=== PATIENT | male | born 1930 | race Caucasian/White ===

== ENCOUNTER → 2016-08-05 | Outpatient (REF) | payer MEDICARE, OTHER ==
[~2016-08-05] MED LIST: ASPI1TAB PO; ATOR1TAB19 PO; CALC1TAB30 PO; COLA100C PO; LEVO100T5 PO; TYLE325T5 PO; VANC250C2 PO
[2016-08-05 09:29] LABS: MEAN CORPUSCULAR HEMOGLOBIN 29.3 pg (27.0-33.0); MEAN CORPUSCULAR HGB CONC 32.9 g/dl (32.0-36.5); MEAN CORPUSCULAR VOLUME 89.3 fl (80.0-96.0); RED CELL DISTRIBUTION WIDTH 13.9 % (11.5-14.5); WHITE BLOOD COUNT 7.6 K/mm3 (4.0-10.0)
[2016-08-05 10:18] LABS: ALBUMIN 3.4 GM/DL (3.2-5.2); ALBUMIN/GLOBULIN RATIO 1.21 (1.00-1.93); ALKALINE PHOSPHATASE 67 U/L (45-117); ALT/SGPT 16 U/L (12-78); ANION GAP 7 MEQ/L (8-16); AST/SGOT 13 U/L (15-37); BILIRUBIN,TOTAL 0.6 MG/DL (0.2-1.0); BLOOD UREA NITROGEN 22 MG/DL (7-18); CALCIUM LEVEL 8.6 MG/DL (8.8-10.2); CARBON DIOXIDE LEVEL 30 MEQ/L (21-32); CHLORIDE LEVEL 105 MEQ/L (98-107); CREATININE FOR GFR 0.75 MG/DL (0.70-1.30); FREE T4 1.21 NG/DL (0.76-1.46); GLOMERULAR FILTRATION RATE > 60.0 (>35); GLUCOSE, FASTING 82 MG/DL (83-110); POTASSIUM SERUM 4.5 MEQ/L (3.5-5.1); SODIUM LEVEL 142 MEQ/L (136-145); TOTAL PROTEIN 6.2 GM/DL (6.4-8.2)
== END ==
PROVIDERS: ATTEND Family Medicine
DX: K52.9 Noninfective gastroenteritis and colitis, unspecified (principal); E03.9 Hypothyroidism, unspecified

== ENCOUNTER → 2016-10-28 | Outpatient (CLI) | payer MEDICARE, OTHER ==
[~2016-10-28] MED LIST changes: -COLA100C PO; +COLA100C3 PO
--- NOTE | 2016-10-28 14:58 | REP ---
KUB: SINGLE VIEW. HISTORY: Gastroenteritis and colitis. FINDINGS: There is moderate right and left colonic stool. The rectum is distended and filled with formed stool, 11.3 cm in diameter. This is consistent with obstipation fecal impaction pattern. No small or proximal large bowel dilation is seen. Psoas margins are symmetric. No mass or organomegaly is appreciated. Vascular calcification is noted. There is diffuse osteopenia. IMPRESSION: Obstipation fecal impaction pattern. Signed by Saud Smith MD 10/28/2016 04:35 P
== END ==
LOC: M RAD 11:04
PROVIDERS: ATTEND Family Medicine
DX: K52.9 Noninfective gastroenteritis and colitis, unspecified (principal)

== ENCOUNTER → 2016-12-18 | Outpatient (CLI) | payer MEDICARE, OTHER ==
[~2016-12-18] MED LIST changes: -COLA100C3 PO; +COLA100C5 PO
--- NOTE | 2016-12-18 10:58 | REP ---
Supine abdomen single AP view: Comparison is 10/28/2016. There is a large fecal bolus in the rectal ampulla, compatible with impaction, similar to the prior study. There is no bowel obstruction. Large volume of fecal residue in the ascending colon and moderate volume of fecal residue in the descending colon. There is diffuse demineralization. Impression: Large fecal bolus in the rectal ampulla, compatible with impaction, similar to the comparison study. Signed by Rajiv Madrigal MD 12/18/2016 10:49 A
== END ==
LOC: M RAD 10:14
PROVIDERS: ATTEND Family Medicine
DX: K59.00 Constipation, unspecified (principal)

== ENCOUNTER → 2016-12-28 | Outpatient (CLI) | payer MEDICARE, OTHER ==
--- NOTE | 2016-12-28 10:52 | REP ---
KUB, ONE VIEW: HISTORY: Fecal impaction. COMPARISON: 12/18/2016 A large quantity of stool is present in the colon. There are no air fluid levels or dilated loops of intestine. There is no pneumoperitoneum. IMPRESSION: There is a large quantity of stool in the colon. Signed by Luis Bonilla MD 12/28/2016 11:08 A
== END ==
LOC: M RAD 10:20 → M LAB 10:20
PROVIDERS: ATTEND Family Medicine
DX: K56.41 Fecal impaction (principal)

== ENCOUNTER 2017-02-11 13:51 | Outpatient (CLI) | payer MEDICARE, OTHER ==
[~2017-02-11] VITALS: Ht 190.5 cm; Wt 68.5 kg
[~2017-02-11 13:51] MED LIST changes: +LIDOCAINE 2% INJ 100 MG/5 ML SDV (FOR ANES.) As Ordered ONE; +PROPOFOL 200 MG/20 ML VIAL As Ordered ONE
[2017-02-11] MEDS ORDERED: NS 1,000 ML IV ONE (14:00)
[2017-02-11] MEDS ORDERED: PHENYLephrine HCL 500 MCG/5 ML (100MCG/ML) SYRINGE (J2370) As Ordered ONE (15:09)
--- NOTE | 2017-02-11 15:42 | ROOR ---
Patient Name: Jaxson Sparrow Procedure Date: 02/11/2017 2:58 PM Date of : 1930 Age: 86 Room: [facility] Gender: Male Note Status: Finalized Procedure: Colonoscopy Indications: Change in bowel habits, Constipation, Fecal incontinence, fecal impaction. Providers: Richar GUERRERO MD Referring MD: Prashanth Ashby MD Requesting Provider: Medicines: Monitored Anesthesia Care Complications: No immediate complications. Procedure: Pre-Anesthesia Assessment: - The heart rate, respiratory rate, oxygen saturations, blood pressure, adequacy of pulmonary ventilation, and response to care were monitored throughout the procedure. The Colonoscope was introduced through the anus and advanced to 1 cm into the ileum. The colonoscopy was performed without difficulty. The patient tolerated the procedure well. The quality of the bowel preparation was good. Findings: The perianal and digital rectal examinations were normal. The lumen of the colon (entire examined portion) was significantly dilated. Three sessile polyps were found in the ascending colon and cecum. The polyps were 5 to 10 mm in size. These polyps were removed with a piecemeal technique using a cold snare. Resection and retrieval were complete. Three sessile polyps were found in the sigmoid colon. The polyps were 7 to 10 mm in size. These polyps were removed with a cold snare. Resection and retrieval were complete. Internal hemorrhoids were found during retroflexion. The hemorrhoids were moderate. Impression: - Atonic, compliant colon-Megacolon. - Three 5 to 10 mm polyps in the ascending colon and in the cecum, removed piecemeal using a cold snare. Resected and retrieved. - Three 7 to 10 mm polyps in the sigmoid colon, removed with a cold snare. Resected and retrieved. - Internal hemorrhoids. - No obstruction, no restriction. Recommendation: - Senosides (Senokot) 2 tablets daily indefinitely. - Use Miralax 2 capfuls (34 grams) daily indefinitely. Richar Guerrero MD Richar GUERRERO MD 02/11/2017 3:42:11 PM This report has been signed electronically. Number of Addenda: 0 Note Initiated On: 02/11/2017 2:58 PM Estimated Blood Loss: Estimated blood loss: none.
[2017-02-11 16:00] VITALS: BP 122/67
== END 2017-02-11 16:07 | disposition home or self-care (01) ==
LOC: M OPP 13:51
PROVIDERS: ATTEND Internal Medicine Gastroenterology
DX: D12.2 Benign neoplasm of ascending colon (principal); D12.0 Benign neoplasm of cecum; D12.5 Benign neoplasm of sigmoid colon; K64.8 Other hemorrhoids; K59.39 Other megacolon
CPT/HCPCS: 45385; 88305; J2370

== ENCOUNTER → 2018-02-16 | Outpatient (CLI) | payer MEDICARE, OTHER ==
[2018-02-16 16:38] LABS: OSMOLALITY SERUM 302 MOSM/KG (280-301)
== END ==
LOC: M LAB 15:19
DX: K56.41 Fecal impaction (principal); R19.7 Diarrhea, unspecified
CPT/HCPCS: 74018

== ENCOUNTER → 2018-02-17 | Outpatient (REF) | payer MEDICARE, OTHER | DX: R19.7 Diarrhea, unspecified (principal) | CPT/HCPCS: 87507 ==

== ENCOUNTER → 2018-04-20 | Outpatient (REF) | payer MEDICARE, OTHER | DX: R19.7 Diarrhea, unspecified (principal) | CPT/HCPCS: 87493 ==

== ENCOUNTER 2018-04-21 09:33 | Inpatient (IN) | payer MEDICARE, OTHER ==
[2018-04-21 10:32] LABS: BASO % 0.2 % (0.0-1.0); HEMATOCRIT 44.9 % (42.0-52.0); HEMOGLOBIN 14.8 g/dl (13.5-17.5); IMMATURE GRANULOCYTE % 0.8 % (0-3.0); LYMPH # 1.1 10^3/uL (1.5-4.5); MEAN CORPUSCULAR HEMOGLOBIN 29.1 pg (27.0-33.0); MEAN CORPUSCULAR VOLUME 88.4 fl (80.0-96.0); MONO # 1.4 10^3/uL (0.0-0.8); MONO % 6.4 % (0.0-5.0); NEUTROPHILS # 19.8 10^3/uL (1.8-7.7); NEUTROPHILS % 87.6 % (36.0-66.0); PLATELET COUNT, AUTOMATED 251 10^3/uL (150-450); RED BLOOD COUNT 5.08 10^6/uL (4.30-6.10); RED CELL DISTRIBUTION WIDTH 14.8 % (11.5-14.5); WHITE BLOOD COUNT 22.6 10^3/uL (4.0-10.0)
[2018-04-21] MEDS: NS 500 ML IV ×2 (10:50→12:58)
[2018-04-21 11:11] LABS: ANION GAP 6 MEQ/L (8-16); BLOOD UREA NITROGEN 32 MG/DL (7-18); CALCIUM LEVEL 9.7 MG/DL (8.8-10.2); CARBON DIOXIDE LEVEL 28 MEQ/L (21-32); CHLORIDE LEVEL 107 MEQ/L (98-107); CPK CREATINE PHOSPHOKINASE 38 U/L (39-308); CREATININE FOR GFR 1.29 MG/DL (0.70-1.30); FREE T4 0.91 NG/DL (0.76-1.46); GLUCOSE, FASTING 117 MG/DL (70-100); MAGNESIUM LEVEL 2.3 MG/DL (1.8-2.4); MB/CK RELATIVE INDEX 2.63 (< OR =4); NT-PRO BNP 2046 PG/ML (<450); POTASSIUM SERUM 4.7 MEQ/L (3.5-5.1); SODIUM LEVEL 141 MEQ/L (136-145); TROPONIN I < 0.02 NG/ML (< 0.10)
[2018-04-21] MEDS: NS 1,000 ML IV (14:31)
[2018-04-21] MEDS ORDERED: CALCIUM CARBONATE 500 MG CHEW U/D PO (14:45)
[2018-04-21] MEDS ORDERED: BISACODYL 10 MG SUPP PR (14:45)
[2018-04-21] MEDS ORDERED: MIRALAX *UNIT DOSE* 17GM PACKET PO (14:45)
[2018-04-21] MEDS: ENOXAPARIN 30 MG/0.3 ML SYR (J1650) SC (15:45)
[2018-04-21] MEDS ORDERED: DOCUSATE SODIUM 100 MG CAP PO (21:00)
[2018-04-21] MEDS ORDERED: SENNA 8.6 MG TAB (SENOKOT) PO (21:00)
[2018-04-21] MEDS: LACTOBACILLUS ACIDOPHILUS CAP (BACID) PO (23:34)
[2018-04-21] MEDS: ATORVASTATIN 10 MG TAB PO (23:35)
[2018-04-22] MEDS: NS 1,000 ML IV ×2 (02:30→14:13)
[2018-04-22 04:27] LABS: KETONE, URINE AUTO RFX TRACE mg/dL (NEGATIVE); MUCUS, URINE RFX SMALL (NEGATIVE); NITRITE, URINE AUTO RFX NEGATIVE (NEGATIVE); RBC, URINE AUTO RFX 7 /HPF (0-3); SQUAM EPITHELIAL CELL UR AURFX 0 /HPF (0-6); TRANSITIONAL EPITHELIAL AU RFX <1 /HPF
[2018-04-22 05:17] LABS: LEUKOCYTE ESTERASE UR AUTO RFX 3+ (NEGATIVE); WBC, URINE AUTO RFX TNTC /HPF (0-3)
[2018-04-22] MEDS: LEVOTHYROXINE 100MCG TABLET (0.1MG) PO (05:37)
[2018-04-22 07:21] LABS: BASO # 0.1 10^3/uL (0.0-0.2); BASO % 0.3 % (0.0-1.0); EOS % 0.1 % (0.0-3.0); HEMATOCRIT 40.7 % (42.0-52.0); HEMOGLOBIN 13.1 g/dl (13.5-17.5); IMMATURE GRANULOCYTE % 0.9 % (0-3.0); LYMPH # 1.6 10^3/uL (1.5-4.5); LYMPH % 8.3 % (24.0-44.0); MEAN CORPUSCULAR HEMOGLOBIN 28.8 pg (27.0-33.0); MEAN CORPUSCULAR HGB CONC 32.2 g/dl (32.0-36.5); MEAN CORPUSCULAR VOLUME 89.5 fl (80.0-96.0); MONO # 1.4 10^3/uL (0.0-0.8); MONO % 7.2 % (0.0-5.0); NEUTROPHILS # 15.9 10^3/uL (1.8-7.7); NEUTROPHILS % 83.2 % (36.0-66.0); PLATELET COUNT, AUTOMATED 199 10^3/uL (150-450); RED BLOOD COUNT 4.55 10^6/uL (4.30-6.10); RED CELL DISTRIBUTION WIDTH 14.9 % (11.5-14.5); WHITE BLOOD COUNT 19.1 10^3/uL (4.0-10.0)
[2018-04-22 07:46] LABS: ANION GAP 6 MEQ/L (8-16); BLOOD UREA NITROGEN 28 MG/DL (7-18); CALCIUM LEVEL 8.6 MG/DL (8.8-10.2); CARBON DIOXIDE LEVEL 25 MEQ/L (21-32); CHLORIDE LEVEL 111 MEQ/L (98-107); CREATININE FOR GFR 0.85 MG/DL (0.70-1.30); GLOMERULAR FILTRATION RATE > 60.0 (>35); GLUCOSE, FASTING 88 MG/DL (70-100); MAGNESIUM LEVEL 2.1 MG/DL (1.8-2.4); POTASSIUM SERUM 3.9 MEQ/L (3.5-5.1); SODIUM LEVEL 142 MEQ/L (136-145)
[2018-04-22] MEDS: ENOXAPARIN 30 MG/0.3 ML SYR (J1650) SC (11:26)
[2018-04-22] MEDS: LACTOBACILLUS ACIDOPHILUS CAP (BACID) PO ×2 (11:26→21:18)
[2018-04-22] MEDS: LOPERAMIDE 2 MG CAP PO (14:13)
[2018-04-22] MEDS: ATORVASTATIN 10 MG TAB PO (21:18)
[2018-04-23] MEDS: LEVOTHYROXINE 100MCG TABLET (0.1MG) PO (05:58)
[2018-04-23 06:25] LABS: BASO # 0.1 10^3/uL (0.0-0.2); BASO % 0.4 % (0.0-1.0); EOS # 0.1 10^3/uL (0.0-0.50); EOS % 0.6 % (0.0-3.0); HEMATOCRIT 38.4 % (42.0-52.0); HEMOGLOBIN 12.6 g/dl (13.5-17.5); IMMATURE GRANULOCYTE % 0.5 % (0-3.0); LYMPH # 1.6 10^3/uL (1.5-4.5); LYMPH % 11.4 % (24.0-44.0); MEAN CORPUSCULAR HEMOGLOBIN 28.9 pg (27.0-33.0); MEAN CORPUSCULAR HGB CONC 32.8 g/dl (32.0-36.5); MEAN CORPUSCULAR VOLUME 88.1 fl (80.0-96.0); MONO # 1.2 10^3/uL (0.0-0.8); MONO % 8.2 % (0.0-5.0); NEUTROPHILS % 78.9 % (36.0-66.0); PLATELET COUNT, AUTOMATED 177 10^3/uL (150-450); RED BLOOD COUNT 4.36 10^6/uL (4.30-6.10); RED CELL DISTRIBUTION WIDTH 15.3 % (11.5-14.5)
[2018-04-23 06:48] LABS: ANION GAP 6 MEQ/L (8-16); BLOOD UREA NITROGEN 25 MG/DL (7-18); CARBON DIOXIDE LEVEL 25 MEQ/L (21-32); CHLORIDE LEVEL 112 MEQ/L (98-107); CREATININE FOR GFR 0.81 MG/DL (0.70-1.30); GLOMERULAR FILTRATION RATE > 60.0 (>35); GLUCOSE, FASTING 86 MG/DL (70-100); MAGNESIUM LEVEL 2.2 MG/DL (1.8-2.4); SODIUM LEVEL 143 MEQ/L (136-145)
[2018-04-23 08:13] LABS: C REACTIVE PROTEIN QUANTITATIV 8.91 MG/DL (0.00-0.30)
[2018-04-23] MEDS: ENOXAPARIN 30 MG/0.3 ML SYR (J1650) SC (09:33)
[2018-04-23] MEDS: ACETAMINOPHEN TAB 650MG DOSE (2X325MG) PO (09:33)
[2018-04-23] MEDS: LACTOBACILLUS ACIDOPHILUS CAP (BACID) PO ×2 (09:34→20:21)
[2018-04-23] MEDS: LOPERAMIDE 2 MG CAP PO (14:45)
[2018-04-23] MEDS: ATORVASTATIN 10 MG TAB PO (20:21)
[2018-04-24] MEDS: LEVOTHYROXINE 100MCG TABLET (0.1MG) PO (05:40)
[2018-04-24 06:10] LABS: BASO # 0.1 10^3/uL (0.0-0.2); BASO % 0.5 % (0.0-1.0); EOS # 0.1 10^3/uL (0.0-0.50); EOS % 0.7 % (0.0-3.0); HEMATOCRIT 42.6 % (42.0-52.0); IMMATURE GRANULOCYTE % 0.9 % (0-3.0); LYMPH # 1.6 10^3/uL (1.5-4.5); MEAN CORPUSCULAR HEMOGLOBIN 29.3 pg (27.0-33.0); MEAN CORPUSCULAR HGB CONC 32.9 g/dl (32.0-36.5); MEAN CORPUSCULAR VOLUME 89.1 fl (80.0-96.0); MONO # 0.9 10^3/uL (0.0-0.8); MONO % 6.9 % (0.0-5.0); NEUTROPHILS # 10.2 10^3/uL (1.8-7.7); PLATELET COUNT, AUTOMATED 200 10^3/uL (150-450); RED BLOOD COUNT 4.78 10^6/uL (4.30-6.10); RED CELL DISTRIBUTION WIDTH 14.7 % (11.5-14.5); WHITE BLOOD COUNT 12.9 10^3/uL (4.0-10.0)
[2018-04-24 06:32] LABS: ANION GAP 7 MEQ/L (8-16); BLOOD UREA NITROGEN 20 MG/DL (7-18); C REACTIVE PROTEIN QUANTITATIV 4.96 MG/DL (0.00-0.30); CALCIUM LEVEL 8.4 MG/DL (8.8-10.2); CARBON DIOXIDE LEVEL 25 MEQ/L (21-32); CHLORIDE LEVEL 110 MEQ/L (98-107); CREATININE FOR GFR 0.76 MG/DL (0.70-1.30); GLOMERULAR FILTRATION RATE > 60.0 (>35); GLUCOSE, FASTING 96 MG/DL (70-100); MAGNESIUM LEVEL 2.2 MG/DL (1.8-2.4); POTASSIUM SERUM 3.5 MEQ/L (3.5-5.1); SODIUM LEVEL 142 MEQ/L (136-145)
[2018-04-24] MEDS: LOPERAMIDE 2 MG CAP PO ×2 (06:34→18:04)
[2018-04-24] MEDS: LACTOBACILLUS ACIDOPHILUS CAP (BACID) PO ×2 (09:32→21:16)
[2018-04-24] MEDS: ENOXAPARIN 30 MG/0.3 ML SYR (J1650) SC (09:33)
[2018-04-24] MEDS: ACETAMINOPHEN TAB 650MG DOSE (2X325MG) PO (09:33)
[2018-04-24] MEDS: ATORVASTATIN 10 MG TAB PO (21:16)
[2018-04-25] MEDS: LEVOTHYROXINE 100MCG TABLET (0.1MG) PO (06:05)
[2018-04-25 06:37] LABS: BASO # 0.1 10^3/uL (0.0-0.2); BASO % 0.8 % (0.0-1.0); EOS # 0.1 10^3/uL (0.0-0.50); HEMATOCRIT 37.8 % (42.0-52.0); HEMOGLOBIN 12.4 g/dl (13.5-17.5); IMMATURE GRANULOCYTE % 2.1 % (0-3.0); LYMPH # 2.2 10^3/uL (1.5-4.5); MEAN CORPUSCULAR HGB CONC 32.8 g/dl (32.0-36.5); MEAN CORPUSCULAR VOLUME 88.5 fl (80.0-96.0); MONO # 1.1 10^3/uL (0.0-0.8); MONO % 9.2 % (0.0-5.0); NEUTROPHILS # 8.3 10^3/uL (1.8-7.7); NEUTROPHILS % 68.9 % (36.0-66.0); PLATELET COUNT, AUTOMATED 199 10^3/uL (150-450); RED BLOOD COUNT 4.27 10^6/uL (4.30-6.10); RED CELL DISTRIBUTION WIDTH 14.6 % (11.5-14.5); WHITE BLOOD COUNT 12.1 10^3/uL (4.0-10.0)
[2018-04-25 07:37] LABS: ANION GAP 6 MEQ/L (8-16); BLOOD UREA NITROGEN 18 MG/DL (7-18); C REACTIVE PROTEIN QUANTITATIV 6.97 MG/DL (0.00-0.30); CALCIUM LEVEL 7.8 MG/DL (8.8-10.2); CARBON DIOXIDE LEVEL 24 MEQ/L (21-32); CHLORIDE LEVEL 111 MEQ/L (98-107); CREATININE FOR GFR 0.75 MG/DL (0.70-1.30); GLOMERULAR FILTRATION RATE > 60.0 (>35); GLUCOSE, FASTING 85 MG/DL (70-100); MAGNESIUM LEVEL 2.1 MG/DL (1.8-2.4); POTASSIUM SERUM 3.7 MEQ/L (3.5-5.1); SODIUM LEVEL 141 MEQ/L (136-145)
[2018-04-25] MEDS: LACTOBACILLUS ACIDOPHILUS CAP (BACID) PO (08:48)
[2018-04-25] MEDS: ENOXAPARIN 30 MG/0.3 ML SYR (J1650) SC (08:49)
== END 2018-04-25 10:55 | DRG 392 ==
LOC: M ED 09:33 → M ED INP 13:36 → M MS5PR 22:36
PROVIDERS: Internal Medicine
DX: R19.7 Diarrhea, unspecified (principal); I95.1 Orthostatic hypotension; E03.9 Hypothyroidism, unspecified; E78.5 Hyperlipidemia, unspecified; Z87.891 Personal history of nicotine dependence; M54.40 Lumbago with sciatica, unspecified side; Z79.899 Other long term (current) drug therapy

== ENCOUNTER → 2018-05-05 | Outpatient (REF) | payer MEDICARE, OTHER ==
[2018-05-05 16:36] LABS: BASO # 0.1 10^3/uL (0.0-0.2); BASO % 0.8 % (0.0-1.0); EOS % 0.1 % (0.0-3.0); HEMATOCRIT 41.8 % (42.0-52.0); HEMOGLOBIN 13.2 g/dl (13.5-17.5); IMMATURE GRANULOCYTE % 1.5 % (0-3.0); LYMPH # 2.1 10^3/uL (1.5-4.5); LYMPH % 18.1 % (24.0-44.0); MEAN CORPUSCULAR HEMOGLOBIN 28.4 pg (27.0-33.0); MEAN CORPUSCULAR HGB CONC 31.6 g/dl (32.0-36.5); MEAN CORPUSCULAR VOLUME 89.9 fl (80.0-96.0); MONO # 0.9 10^3/uL (0.0-0.8); MONO % 7.8 % (0.0-5.0); NEUTROPHILS # 8.2 10^3/uL (1.8-7.7); NEUTROPHILS % 71.7 % (36.0-66.0); PLATELET COUNT, AUTOMATED 300 10^3/uL (150-450); RED BLOOD COUNT 4.65 10^6/uL (4.30-6.10); RED CELL DISTRIBUTION WIDTH 14.6 % (11.5-14.5); WHITE BLOOD COUNT 11.5 10^3/uL (4.0-10.0)
[2018-05-05 17:08] LABS: ANION GAP 5 MEQ/L (8-16); BLOOD UREA NITROGEN 24 MG/DL (7-18); CARBON DIOXIDE LEVEL 29 MEQ/L (21-32); CHLORIDE LEVEL 102 MEQ/L (98-107); CREATININE FOR GFR 1.07 MG/DL (0.70-1.30); GLOMERULAR FILTRATION RATE > 60.0 (>35); GLUCOSE, FASTING 94 MG/DL (70-100); POTASSIUM SERUM 4.9 MEQ/L (3.5-5.1); SODIUM LEVEL 136 MEQ/L (136-145)
[2018-05-05 17:09] LABS: ALBUMIN 3.1 GM/DL (3.2-5.2); ALBUMIN/GLOBULIN RATIO 0.94 (1.00-1.93); ALKALINE PHOSPHATASE 63 U/L (45-117); ALT/SGPT 15 U/L (12-78); AST/SGOT 11 U/L (7-37); BILIRUBIN,TOTAL 0.3 MG/DL (0.2-1.0); FREE T4 0.88 NG/DL (0.76-1.46); MAGNESIUM LEVEL 2.2 MG/DL (1.8-2.4); NT-PRO BNP 840 PG/ML (<450); TOTAL PROTEIN 6.4 GM/DL (6.4-8.2)
== END ==
LOC: M SFHCPLAZ 14:59
DX: K59.09 Other constipation (principal); E03.9 Hypothyroidism, unspecified; I44.7 Left bundle-branch block, unspecified
CPT/HCPCS: 83735

== ENCOUNTER → 2018-07-24 | Outpatient (CLI) | payer MEDICARE, OTHER ==
[~2018-07-24] MED LIST changes: +CVS8.6TA5 PO; +DOCU100C16 PO; +DULC10SU2 PR; -LIDOCAINE 2% INJ 100 MG/5 ML SDV (FOR ANES.) As Ordered ONE; +MIRA3350 PO; -PROPOFOL 200 MG/20 ML VIAL As Ordered ONE; +REGUPOW PO; +RISATAB3 PO
== END ==
LOC: M LAB 15:46
PROVIDERS: ATTEND Family Medicine
DX: K59.39 Other megacolon (principal)

== ENCOUNTER → 2018-08-25 | Outpatient (REF) | payer MEDICARE, OTHER ==
[2018-08-25 13:26] LABS: BASO # 0.1 10^3/uL (0.0-0.2); BASO % 0.8 % (0.0-1.0); EOS # 0.1 10^3/uL (0.0-0.50); EOS % 1.3 % (0.0-3.0); HEMATOCRIT 43.5 % (42.0-52.0); LYMPH # 1.1 10^3/uL (1.5-4.5); LYMPH % 11.4 % (24.0-44.0); MEAN CORPUSCULAR HEMOGLOBIN 28.2 pg (27.0-33.0); MEAN CORPUSCULAR HGB CONC 32.2 g/dl (32.0-36.5); MEAN CORPUSCULAR VOLUME 87.5 fl (80.0-96.0); MONO # 1.5 10^3/uL (0.0-0.8); MONO % 15.3 % (0.0-5.0); NEUTROPHILS # 6.9 10^3/uL (1.8-7.7); NEUTROPHILS % 70.4 % (36.0-66.0); PLATELET COUNT, AUTOMATED 313 10^3/uL (150-450); RED BLOOD COUNT 4.97 10^6/uL (4.30-6.10); WHITE BLOOD COUNT 9.7 10^3/uL (4.0-10.0)
[2018-08-25 13:58] LABS: ALBUMIN 3.6 GM/DL (3.2-5.2); IRON (FE) 27 UG/DL (65-175)
[2018-08-25 14:21] LABS: FOLATE > 24.0 NG/ML; PREALBUMIN 14.9 MG/DL (20.0-40.0); VITAMIN B12 LEVEL 582 PG/ML
== END ==
LOC: M SFHCPLAZ 11:18
PROVIDERS: ATTEND Family Medicine
DX: R63.4 Abnormal weight loss (principal)

== ENCOUNTER 2018-08-27 18:22 | Inpatient (IN) | payer MEDICARE, OTHER ==
[~2018-08-27] VITALS: Ht 193 cm; Wt 65.0 kg
[2018-08-27] MEDS: NS 1,000 ML IV SCH (03:59)
[2018-08-27 19:01] LABS: BASO % 0.2 % (0.0-1.0); EOS % 0.2 % (0.0-3.0); HEMATOCRIT 46.3 % (42.0-52.0); LYMPH # 0.9 10^3/uL (1.5-4.5); LYMPH % 5.4 % (24.0-44.0); MEAN CORPUSCULAR HEMOGLOBIN 28.4 pg (27.0-33.0); MEAN CORPUSCULAR HGB CONC 32.4 g/dl (32.0-36.5); MEAN CORPUSCULAR VOLUME 87.5 fl (80.0-96.0); MONO # 0.1 10^3/uL (0.0-0.8); MONO % 0.6 % (0.0-5.0); NEUTROPHILS # 15.1 10^3/uL (1.8-7.7); NEUTROPHILS % 93.1 % (36.0-66.0); PLATELET COUNT, AUTOMATED 274 10^3/uL (150-450); RED BLOOD COUNT 5.29 10^6/uL (4.30-6.10); WHITE BLOOD COUNT 16.2 10^3/uL (4.0-10.0)
[2018-08-27 19:06] LABS: INR 1.21; PARTIAL THROMBOPLASTIN TIME 30.3 SECONDS (25.4-37.6); PROTHROMBIN TIME 15.5 SECONDS (12.1-14.4)
[2018-08-27 19:14] LABS: ALBUMIN 3.7 GM/DL (3.2-5.2); ALT/SGPT 18 U/L (12-78); BILIRUBIN,DIRECT 0.2 MG/DL (0.0-0.2); BILIRUBIN,TOTAL 0.6 MG/DL (0.2-1.0); BLOOD UREA NITROGEN 27 MG/DL (7-18); CALCIUM LEVEL 8.9 MG/DL (8.8-10.2); CARBON DIOXIDE LEVEL 26 MEQ/L (21-32); CHLORIDE LEVEL 109 MEQ/L (98-107); CK-MB VALUE MASS < 1.0 NG/ML (<3.6); CPK CREATINE PHOSPHOKINASE 24 U/L (39-308); GLOMERULAR FILTRATION RATE > 60.0 (>35); GLUCOSE, FASTING 101 MG/DL (70-100); MB/CK RELATIVE INDEX 4.17 (< OR =4); POTASSIUM SERUM 4.8 MEQ/L (3.5-5.1); SODIUM LEVEL 144 MEQ/L (136-145); TOTAL PROTEIN 7.1 GM/DL (6.4-8.2); TROPONIN I < 0.02 NG/ML (< 0.10)
[2018-08-27 19:20] LABS: INFLUENZA A AMPLIFICATION NEGATIVE (NEGATIVE); INFLUENZA B AMPLIFICATION NEGATIVE (NEGATIVE)
[2018-08-27] MEDS ORDERED: IPRATROPIUM 0.5MG/ALBUTEROL 2.5MG INH SOL UD 3ML (DUONEB)(J7620) NEB ONE (19:30)
[2018-08-27] MEDS ORDERED: IBUPROFEN 600 MG TAB PO ONE (19:30)
[2018-08-27] MEDS ORDERED: LEVO125T4 PO (19:31)
[2018-08-27] MEDS ORDERED: OMEP20TA PO (19:31)
[2018-08-27] MEDS ORDERED: MIRA3350 PO (19:31)
[2018-08-27] MEDS ORDERED: REME15TA PO (19:31)
[2018-08-27] MEDS ORDERED: LevoFLOXacin IV 500 MG in APPROPRIATE DILUENT 1 EA IV ONE (20:00)
[2018-08-27] MEDS: MIRTAZAPINE 15 MG TAB PO SCH (21:00)
[2018-08-27] MEDS: SENNA 8.6 MG TAB (SENOKOT) PO SCH (21:00)
[2018-08-27] MEDS: METOPROLOL TART 12.5 MG PER 1/2 TAB PO SCH (21:00)
[2018-08-27] MEDS: ATORVASTATIN 10 MG TAB PO SCH (21:00)
[2018-08-27] MEDS ORDERED: BISACODYL 5 MG TAB PO PRN (21:30)
[2018-08-27] MEDS ORDERED: VANCOMYCIN HCL 1,000 MG, VIAL MATE ADAPTER 1 EACH in D5W 250 ML IV ONE (22:00)
[2018-08-28] VITALS (12 sets, daily range): BP systolic 83–107; BP diastolic 48–66
[2018-08-28] MEDS ORDERED: AMIODARONE HCL 150 MG in APPROPRIATE DILUENT 1 EA IV STA (00:09)
[2018-08-28] MEDS ORDERED: AMIODARONE HCL 200 ML IV SCH ×2 (00:30→06:30)
[2018-08-28] MEDS ORDERED: PIPERACILLIN/TAZOBACTAM SOD 4.5 GM in D5W MINI-BAG PLUS 50 ML IV SCH ×4 (01:00)
--- NOTE | 2018-08-28 01:07 | HPEPDOC ---
[facility] Medical History & Physical Date of Admission Aug 27, 2018 Primary Care Physician: Prashanth Ashby MD Attending Physician: Prashanth Ashby MD History and Physical CHIEF COMPLAINT: Fever and cough HISTORY OF PRESENT ILLNESS: Patient is an 88 year old male with a past medical history significant hypothyrodism and hyperlipidemia who presented to the [facility] ER from [facility] with complaint of "not feeling well" Patient stated that a few days ago he had started feeling ill. He stated that at the time he had an upset stomach and some diarrhea. He currently denies a cough although patient has been coughing throughout exam. He denies any nausea or vomiting. He denies any fevers but states that he does get chills at times. He denies shortness of breath or chest pain. Patient states that he doesn't feel well but would like to go home. In the ER the patient was found to be febrile with an elevated white count and lactic acid. Additionally, he was found to be in Atrial fibrillation with RVR. He denies any past history of Atrial fibrillation and review of patients chart did not show a diagnosis in the past. He denies any shortness of breath, chest pain, or palpitations at this current time. In addition, patient received a chest x-ray which demonstrated a right lobe infiltrate. He was given one dose of levofloxacin and a Duoneb. Hospitalist service was consulted for further evaluat ion and management. PAST MEDICAL HISTORY: 1. Hypothyroidism 2. Hyperlipidema PAST SURGICAL HISTORY: 1. Tonsillectomy 2. Adenoidectomy 3. Left ankle surgery SOCIAL HISTORY: Resident of [facility]. Patient was a heavy drinker in the past. He admits to being a former smoker FAMILY HISTORY: Non-contributory ALLERGIES: Please see below. REVIEW OF SYSTEMS: CONSTITUTIONAL: Admits to chills. Denies fevers, night sweats, unintentional weight loss or weight gain. HEENT: Admits to cough. Denies sore throat CARDIOVASCULAR: Denies chest pain or palpitations RESPIRATORY: Denies shortness of breath. Denies wheezing GASTROINTESTINAL: Denies abdominal pain. Admits to diarrhea GENITOURINARY: Denies dysuria or increased frequency SKIN: Denies rashes or lesions NEUROLOGICAL: Denies changes in speech or gait PSYCHIATRIC: Denies depression or anxiety ENDOCRINE: Denies heat or cold intolerance HEMATOLOGIC/LYMPHATIC: Denies easy bruising or bleeding HOME MEDICATIONS: Please see below. PHYSICAL EXAMINATION: VITAL SIGNS: Temperature 97.7, pulse 117, respiratory rate 24, blood pressure 133/64, pulse oximetry 95% on room air. GENERAL APPEARANCE: Patient is awake alert and oriented. He does not appear to be in acute distress. He is cooperative although easily agitated. HEENT: Atraumatic normocephalic. Trachea is midline. Eyes are non-icteric. Dentition is fair. Mucous membranes are pink and moist CARDIOVASCULAR: Irregularly Irregular rhythm with tachycardic rate. No clicks rubs or murmurs. Sternal bony deformity noted on exam LUNGS: Rhonchorous breath sounds throughout. Decreased breath sounds in the bases bilaterally. ABDOMEN: Soft, nondistended. Nontender to palpation. Positive bowel sounds EXTREMITIES: Irregular full pulses palpated bilaterally NEUROLOGICAL: No focal neurological deficit noted PSYCHIATRIC: Slight agitation. LABORATORY DATA: See below. IMAGING: Chest X-ray demonstrated right lobe infiltrate MICROBIOLOGY: Please see below. ASSESSMENT and PLAN 1. HCAP -Patient resides in the [facility] he presented to the ER with a fever, elevated WBC, elevated lactic acid, and chest X-ray positive for a right lower lobe infiltrate. In the ER the patient received a dose of Levofloxacin. -IV Zosyn and Vancomycin -IV Normal Saline Bolus x2. Lactic acid at presentation was 2.3. Repeat Lactic acid of 1.3 -Will trend WBC -Respiratory therapy and duonebs prn 2. New Onset Atrial Fibrillation with RVR -Patient presented to the ER with new onset atrial fibrillation in RVR. He has remained largely asymptomatic. His new onset atrial fibrillation is likely secondary to his right lobe pneumonia. Correction of his pneumonia will likely resolve his tachyarrhythmia. The patient did develop an episode of asymptomatic hypotension. The patient was given additional IV NS bolus and started on an Amiodarone drip -Metoprolol 12.5mg BID -Patient has a CHADS2 score of 1 and he may not necessarily need anticoagulation at this point. A [id number] score may indicate anticoagulation based on his age. At this time the patient was started on aspirin 81mg and is receiving Lovenox for DVT prophylaxis. prison anticoagulation may be considered upon discharge -Patient is on Telemetry in ICU -Echocardiogram for New onset Atrial Fibrillation 3. DVT prophylaxis -Lovenox 40mg SC daily Vital Signs Vital Signs Date Time Temp Pulse Resp B/P (MAP) Pulse Ox O2 Delivery O2 Flow Rate FiO2 08/27/18 20:52 117 92 08/27/18 18:45 126/58 (80) 08/27/18 18:36 Room Air 08/27/18 18:28 102.1 26 Laboratory Data Labs 24H Laboratory Tests 2 08/27/18 18:38: Immature Granulocyte % (Auto) 0.5, White Blood Count 16.2H, Red Blood Count 5.29, Hemoglobin 15.0, Hematocrit 46.3, Mean Corpuscular Volume 87.5, Mean Corpuscular Hemoglobin 28.4, Mean Corpuscular Hemoglobin Concent 32.4, Red Cell Distribution Width 14.6H, Platelet Count 274, Neutrophils (%) (Auto) 93.1H, Lymphocytes (%) (Auto) 5.4L, Monocytes (%) (Auto) 0.6, Eosinophils (%) (Auto) 0.2, Basophils (%) (Auto) 0.2, Neutrophils # (Auto) 15.1H, Lymphocytes # (Auto) 0.9L, Monocytes # (Auto) 0.1, Eosinophils # (Auto) 0.0, Basophils # (Auto) 0.0, Nucleated Red Blood Cells % (auto) 0.0, Prothrombin Time 15.5H, Prothromb Time International Ratio 1.21, Activated Partial Thromboplast Time 30.3, Anion Gap 9, Glomerular Filtration Rate > 60.0, Lactic Acid Level 2.3*H, Calcium Level 8.9, Aspartate Amino Transf (AST/SGOT) 12, Alanine Aminotransferase (ALT/SGPT) 18, Alkaline Phosphatase 91, Total Bilirubin 0.6, Direct Bilirubin 0.2, Total Creatine Kinase 24L, Creatine Kinase MB < 1.0, Creatine Kinase MB Relative Index 4.17H, Troponin I < 0.02, Total Protein 7.1, Albumin 3.7, Albumin/Globulin Ratio 1.09, Influenza Type A (RT-PCR) NEGATIVE, Influenza Type B (RT-PCR) NEGATIVE CBC/BMP Laboratory Tests 08/27/18 18:38 Red Blood Count 5.29, Mean Corpuscular Volume 87.5, Mean Corpuscular Hemoglobin 28.4, Mean Corpuscular Hemoglobin Concent 32.4, Red Cell Distribution Width 14.6 H, Neutrophils (%) (Auto) 93.1 H, Lymphocytes (%) (Auto) 5.4 L, Monocytes (%) (Auto) 0.6, Eosinophils (%) (Auto) 0.2, Basophils (%) (Auto) 0.2, Neutrophils # (Auto) 15.1 H, Lymphocytes # (Auto) 0.9 L, Monocytes # (Auto) 0.1, Eosinophils # (Auto) 0.0, Basophils # (Auto) 0.0 Microbiology Microbiology 08/27/18 Blood Culture, Received Pending 08/27/18 Blood Culture, Received Pending Home Medications Scheduled (Calcium 500+D 500-200 mg-Unit) 1 Tab Tab, 1 TAB PO BID (Alyx-Bid Probiotic) 1 Tab Tab, 1 TAB PO BID Atorvastatin Calcium (Atorvastatin Calcium) 10 Mg Tab, 10 MG PO QHS Levothyroxine Sodium (Synthroid) 125 Mcg Tab, 125 MCG PO DAILY GIVE AT 1100 Mirtazapine (Remeron) 15 Mg Tab, 15 MG PO QHS Omeprazole (Omeprazole) 20 Mg Tab, 20 MG PO DAILY GIVE AT 0800 Polyethylene Glycol (Miralax) 1 Pow Pow, 17 GRAM PO DAILY dissolve in water Senna (Cvs Senna) 8.6 Mg Tab, 2 TABS PO QHS Scheduled PRN Acetaminophen (Tylenol) 325 Mg Tab, 650 MG PO Q6H PRN for PAIN Psyllium (Reguloid) 28.3 % Pow, 1 POW PO DAILY PRN for IRRITABLE SYND Allergies Coded Allergies: No Known Drug Allergy (Verified Allergy, Unknown, 04/21/18) GME ATTESTATION GME ATTESTATION My faculty preceptor for this patient encounter was physically present during the encounter and was fully available. All aspects of the patient interview, examination, medical decision making process, and medical care plan development were reviewed and approved by the faculty preceptor. The faculty preceptor is aware and concurs with the plan as stated in the body of this note and will attest to such by his/her cosignature. MORENITA UGARTE DO Aug 27, 2018 23:16 MARTHA BLUE MD Aug 28, 2018 18:49
[2018-08-28] MEDS ORDERED: NS 1,000 ML IV ONE ×2 (01:30→01:45)
[2018-08-28] MEDS: NS 1,000 ML IV SCH ×3 (03:59→23:10)
[2018-08-28 04:37] LABS: BASO # 0.1 10^3/uL (0.0-0.2); BASO % 0.2 % (0.0-1.0); HEMATOCRIT 37.7 % (42.0-52.0); LYMPH # 0.5 10^3/uL (1.5-4.5); LYMPH % 1.3 % (24.0-44.0); MEAN CORPUSCULAR HEMOGLOBIN 28.3 pg (27.0-33.0); MEAN CORPUSCULAR HGB CONC 32.1 g/dl (32.0-36.5); MEAN CORPUSCULAR VOLUME 88.3 fl (80.0-96.0); MONO # 1.7 10^3/uL (0.0-0.8); NEUTROPHILS % 91.6 % (36.0-66.0); PLATELET COUNT, AUTOMATED 205 10^3/uL (150-450); RED BLOOD COUNT 4.27 10^6/uL (4.30-6.10)
[2018-08-28 04:42] LABS: NEUTROPHILS # 31.6 10^3/uL (1.8-7.7); WHITE BLOOD COUNT 34.5 10^3/uL (4.0-10.0)
[2018-08-28 04:43] LABS: HEMOGLOBIN 12.1 g/dl (13.5-17.5)
[2018-08-28 05:06] LABS: BLOOD UREA NITROGEN 31 MG/DL (7-18); CALCIUM LEVEL 7.7 MG/DL (8.8-10.2); CARBON DIOXIDE LEVEL 25 MEQ/L (21-32); CHLORIDE LEVEL 111 MEQ/L (98-107); CREATININE FOR GFR 1.12 MG/DL (0.70-1.30); GLOMERULAR FILTRATION RATE > 60.0 (>35); GLUCOSE, FASTING 135 MG/DL (70-100); POTASSIUM SERUM 3.7 MEQ/L (3.5-5.1); SODIUM LEVEL 143 MEQ/L (136-145)
--- NOTE | 2018-08-28 06:07 | PHACANCOPD ---
PHARMACY VANCOMYCIN DOSING Pt Demographics Demographics Patient Age:88 , Weight:67.100 , Gender: male Adjusted Body Weight Date: 08/28/18, Adjusted Body Weight: [70.9] Kg ACTUAL WT Vancomycin Vancomycin indication: HCAP Vancomycin Target Ranges: 15-20 mcg/ml Vancomycin Load Y/N: No Load Dose Date Time Vancomycin Load Dose: Date: Time: Vancomycin Dose Date: 08/28/18. Current Vancomycin Dose: [1 GM Q24H] Intermittent Dosing?: No Labs Labs Laboratory Tests 08/27/18 18:38 Red Blood Count 5.29, Mean Corpuscular Volume 87.5, Mean Corpuscular Hemoglobin 28.4, Mean Corpuscular Hemoglobin Concent 32.4, Red Cell Distribution Width 14.6 H, Neutrophils (%) (Auto) 93.1 H, Lymphocytes (%) (Auto) 5.4 L, Monocytes (%) (Auto) 0.6, Eosinophils (%) (Auto) 0.2, Basophils (%) (Auto) 0.2, Neutrophils # (Auto) 15.1 H, Lymphocytes # (Auto) 0.9 L, Monocytes # (Auto) 0.1, Eosinophils # (Auto) 0.0, Basophils # (Auto) 0.0 08/28/18 04:09 Red Blood Count 4.27 L, Mean Corpuscular Volume 88.3, Mean Corpuscular Hemoglobin 28.3, Mean Corpuscular Hemoglobin Concent 32.1, Red Cell Distribution Width 14.7 H, Neutrophils (%) (Auto) 91.6 H, Lymphocytes (%) (Auto) 1.3 L, Monocytes (%) (Auto) 5.0, Eosinophils (%) (Auto) 0.0, Basophils (%) (Auto) 0.2, Neutrophils # (Auto) 31.6 H, Lymphocytes # (Auto) 0.5 L, Monocytes # (Auto) 1.7 H, Eosinophils # (Auto) 0.0, Basophils # (Auto) 0.1, Calcium Level 7.7 L Micro Microbiology 08/27/18 Blood Culture, Received Pending 08/27/18 Blood Culture, Received Pending 08/28/18 MRSA Screen, Received Pending Creatinine Clearance Date:08/28/18. Creatinine Clearance: [50.2].CALCULATED Pending Labs Vancomycin trough due 08/29@1400 Assessment and Plan Maintaining Current Dose?: Yes Reason for dose change: No Dose Change Pharmacist Note Pharmacist Note Date: 08/28/18. Pharmacist note:88 YOm admitted w HCAP, NKDA,SCR=1.0, CRCL =50.2- calculated. In ICU on Pip/Tazo 4.5 gm IV Q6H and Vancomycin per Pharmacy dosing. Vanco 1 gm in ICU@03,then will begin 1 gram IV Q24H @1500. Trough is scheduled for 08/29@1400(prior to the 3rd dose)-Will cmtinue to follow [facility] Aug 28, 2018 06:07
[2018-08-28] MEDS: LEVOTHYROXINE 125MCG TABLET (0.125MG) PO SCH (06:27)
[2018-08-28] MEDS: ENOXAPARIN 40 MG/0.4 ML SYRINGE (J1650) SC SCH (09:05)
[2018-08-28] MEDS: OMEPRAZOLE 20 MG CAP PO SCH (09:06)
[2018-08-28] MEDS: ASPIRIN 81 MG ENTERIC TAB PO SCH (09:06)
[2018-08-28] MEDS: METOPROLOL TART 12.5 MG PER 1/2 TAB PO SCH (09:06)
[2018-08-28] MEDS: MIRALAX *UNIT DOSE* 17GM PACKET PO SCH ×2 (09:06→10:55)
--- NOTE | 2018-08-28 10:16 | REP ---
PA and lateral chest: Comparison is 04/21/2018. Chronic interstitial coarsening and hyperinflation are unchanged, compatible with chronic lung disease. Mild There are no focal infiltrates. No pleural effusions. No masses. Cardiac size is normal, unchanged. There is thoracic scoliosis convex right, unchanged. There is an old fracture of the left humeral neck, unchanged. Pectus carotid is unchanged. Impression: Chronic lung disease. No acute infiltrate or effusion. Electronically Signed by Rajiv Madrigal MD 08/28/2018 10:08 A
[2018-08-28] MEDS ORDERED: ATROPINE SULF 1MG/10ML SYRINGE (J0461) IV PRN (11:30)
--- NOTE | 2018-08-28 11:42 | ECHO ---
DATE OF PROCEDURE: 08/28/2018 REFERRING PHYSICIAN: Davon Camargo DO INDICATION: Atrial fibrillation. HEIGHT: 190 cm WEIGHT 67 kg DIMENSIONS: IVS: 1.1 LV: 3.8 LVPW: 1.1 LA: 2.4 Aorta: 4.1 ICA: 2.2 Mitral E wave velocity: 105 A wave: 96 E prime septal: 4.8 E prime lateral: 4.1 FINDINGS: The study is of acceptable technical quality. Left ventricle is normal size and systolic function, I estimate LVEF 65-70%. No segmental wall motion abnormalities are appreciated. Right ventricle also appears normal size and systolic function. Left atrium appears normal size. Same applies for right atrium. Aortic valve is minimally sclerotic but mobility is preserved. There are also mild degenerative abnormalities of mitral valve but mobility of leaflets is preserved. Tricuspid valve appears normal. Pulmonic valve was not visualized. No pericardial effusion is noted. Inferior vena cava is dilated and there is no appreciable collapse with respiration indicative of likely very high central venous pressure. Aortic root is dilated at 4.1 cm. Aortic arch and abdominal aorta were not visualized. Doppler interrogation of aortic valve reveals no significant stenosis or insufficiency. Same applies for mitral valve. Trace tricuspid insufficiency seen. Calculated pulmonary artery pressure is at minimum in 40s corresponding to moderate pulmonary hypertension. Mitral inflow pattern and tissue Doppler imaging of mitral annulus reveals grade 2 diastolic dysfunction. CONCLUSIONS: 1. Study is of acceptable technical quality. 2. Normal LV size with normal LV systolic function and grade 2 diastolic dysfunction. 3. No hemodynamically significant valvular disease. 4. Elevated central venous pressure and at least moderate pulmonary hypertension. 5. Dilated aortic root (4.1cm) COMMENT: SBE prophylaxis is not recommended. Study is consistent with diastolic congestive heart failure. MTDD
[2018-08-28] MEDS: PIPERACILLIN/TAZOBACTAM SOD 4.5 GM in D5W MINI-BAG PLUS 50 ML IV SCH ×2 (12:30→17:55)
[2018-08-28] MEDS: VANCOMYCIN HCL 1,000 MG, VIAL MATE ADAPTER 1 EACH in D5W 250 ML IV SCH (15:57)
[2018-08-28] MEDS: SENNA 8.6 MG TAB (SENOKOT) PO SCH (20:08)
[2018-08-28] MEDS: MIRTAZAPINE 15 MG TAB PO SCH (20:08)
[2018-08-28] MEDS: ATORVASTATIN 10 MG TAB PO SCH (20:08)
[2018-08-29] VITALS (10 sets, daily range): BP systolic 113–157; BP diastolic 56–90
[2018-08-29] MEDS: PIPERACILLIN/TAZOBACTAM SOD 4.5 GM in D5W MINI-BAG PLUS 50 ML IV SCH ×4 (00:06→17:35)
[2018-08-29] MEDS: NS 1,000 ML IV SCH (04:26)
[2018-08-29 04:50] LABS: BASO # 0.1 10^3/uL (0.0-0.2); BASO % 0.3 % (0.0-1.0); EOS # 0.1 10^3/uL (0.0-0.50); EOS % 0.4 % (0.0-3.0); HEMATOCRIT 37.8 % (42.0-52.0); LYMPH # 1.6 10^3/uL (1.5-4.5); LYMPH % 10.2 % (24.0-44.0); MEAN CORPUSCULAR HEMOGLOBIN 28.1 pg (27.0-33.0); MEAN CORPUSCULAR HGB CONC 31.7 g/dl (32.0-36.5); MEAN CORPUSCULAR VOLUME 88.5 fl (80.0-96.0); MONO # 0.9 10^3/uL (0.0-0.8); MONO % 5.9 % (0.0-5.0); NEUTROPHILS # 12.9 10^3/uL (1.8-7.7); NEUTROPHILS % 82.7 % (36.0-66.0); PLATELET COUNT, AUTOMATED 168 10^3/uL (150-450); RED BLOOD COUNT 4.27 10^6/uL (4.30-6.10); WHITE BLOOD COUNT 15.7 10^3/uL (4.0-10.0)
[2018-08-29 05:19] LABS: BLOOD UREA NITROGEN 26 MG/DL (7-18); CALCIUM LEVEL 7.7 MG/DL (8.8-10.2); CARBON DIOXIDE LEVEL 24 MEQ/L (21-32); CHLORIDE LEVEL 112 MEQ/L (98-107); CREATININE FOR GFR 0.87 MG/DL (0.70-1.30); GLOMERULAR FILTRATION RATE > 60.0 (>35); GLUCOSE, FASTING 75 MG/DL (70-100); POTASSIUM SERUM 3.7 MEQ/L (3.5-5.1); SODIUM LEVEL 142 MEQ/L (136-145)
[2018-08-29] MEDS: LEVOTHYROXINE 125MCG TABLET (0.125MG) PO SCH (05:58)
[2018-08-29] MEDS: OMEPRAZOLE 20 MG CAP PO SCH (08:13)
[2018-08-29] MEDS: ENOXAPARIN 40 MG/0.4 ML SYRINGE (J1650) SC SCH (08:13)
[2018-08-29] MEDS: ASPIRIN 81 MG ENTERIC TAB PO SCH (08:13)
[2018-08-29] MEDS: MIRALAX *UNIT DOSE* 17GM PACKET PO SCH (09:00)
--- NOTE | 2018-08-29 09:03 | NUR ---
Pt w/ mild oropharyngeal phase dysphagia. Recommend nectar thick liquids, mechanical soft solids. Meds whole w/ nectar thick liquid wash. Upright during meals. Thorough oral care 3x/day w/ regular toothbrush & thickened liquids. Addendum: 08/29/[address] [facility] Amended: Links added.
[2018-08-29] MEDS: ACETAMINOPHEN TAB 650MG DOSE (2X325MG) PO PRN ×2 (12:09→21:24)
--- NOTE | 2018-08-29 14:59 | IPNPDOC ---
Subjective Date Seen The patient was seen on 08/29/18. Subjective Chief Complaint/HPI Patient seen and examined at the bedside. States that he is feeling better overall today and notes that he has more energy. Denies any acute overnight events. On telemetry, patient was noted to be intermittently tachycardic and bradycardic. Objective Physical Examination General Exam: Positive: Alert, Cooperative, No Acute Distress ENT Exam: Positive: Atraumatic, Mucous membr. moist/pink Chest Exam: Positive: Diminished Heart Exam: Positive: Rate Normal, Normal S1, Normal S2 Telemetry: Positive: Sinus Abdomen Exam: Positive: Soft; Negative: Tenderness Extremity Exam: Negative: Tenderness, Swelling Psych Exam: Positive: Oriented x 3 Assessment /Plan Plan/VTE VTE Prophylaxis Ordered?: Yes Plan HCAP Respiratory status improved following treatment WBC trending downward Cont IV Zosyn and Vancomycin Cont Respiratory therapy and duonebs prn We will cont to monitor Respiratory status PT ordered for functional optimization. 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 He did receive a dose of Amiodarone on admission, and 1 dose of Metoprolol 12.5mg yesterday morning. We will cont to monitor the patient on Telemetry and consider cardiology consultation if he continues to display tachy/rhonda signs despite being off meds Dysphagia Speech/Swallow noted--we will adjust the patient's diet accordingly Hypothyroidism Cont levothyroxine Hyperlipidemia Statin GERD Cont PPI DVT prophylaxis Lovenox SC VS, I&O, 24H, Fishbone Vital Signs/I&O Vital Signs Date Time Temp Pulse Resp B/P (MAP) Pulse Ox O2 Delivery O2 Flow Rate FiO2 08/29/18 13:42 97 20 113/56 (75) 94 08/29/18 12:00 101.3 08/28/18 00:16 Room Air I&O- Last 24 Hours up to 6 AM 08/29/18 06:00 Intake Total 1830 ml Output Total 300 ml Balance 1530 ml Laboratory Data 24H LABS Laboratory Tests 2 08/29/18 04:04: Immature Granulocyte % (Auto) 0.5, White Blood Count 15.7H, Red Blood Count 4.27L, Hemoglobin 12.0L, Hematocrit 37.8L, Mean Corpuscular Volume 88.5, Mean Corpuscular Hemoglobin 28.1, Mean Corpuscular Hemoglobin Concent 31.7L, Red Cell Distribution Width 15.0H, Platelet Count 168, Neutrophils (%) (Auto) 82.7H, Lymphocytes (%) (Auto) 10.2L, Monocytes (%) (Auto) 5.9H, Eosinophils (%) (Auto) 0.4, Basophils (%) (Auto) 0.3, Neutrophils # (Auto) 12.9H, Lymphocytes # (Auto) 1.6, Monocytes # (Auto) 0.9H, Eosinophils # (Auto) 0.1, Basophils # (Auto) 0.1, Nucleated Red Blood Cells % (auto) 0.0, Anion Gap 6L, Glomerular Filtration Rate > 60.0, Blood Urea Nitrogen 26H, Creatinine 0.87, Sodium Level 142, Potassium Level 3.7, Chloride Level 112H, Carbon Dioxide Level 24, Calcium Level 7.7L 08/29/18 13:48: Vancomycin Level Trough 7.1L CBC/BMP Laboratory Tests 08/29/18 04:04 Red Blood Count 4.27 L, Mean Corpuscular Volume 88.5, Mean Corpuscular Hemoglobin 28.1, Mean Corpuscular Hemoglobin Concent 31.7 L, Red Cell Distribution Width 15.0 H, Neutrophils (%) (Auto) 82.7 H, Lymphocytes (%) (Auto) 10.2 L, Monocytes (%) (Auto) 5.9 H, Eosinophils (%) (Auto) 0.4, Basophils (%) (Auto) 0.3, Neutrophils # (Auto) 12.9 H, Lymphocytes # (Auto) 1.6, Monocytes # (Auto) 0.9 H, Eosinophils # (Auto) 0.1, Basophils # (Auto) 0.1, Calcium Level 7.7 L Microbiology Microbiology 08/27/18 Blood Culture - Preliminary, Resulted No growth after 24 hours . All specim... 08/27/18 Blood Culture - Preliminary, Resulted No growth after 24 hours . All specim... 08/28/18 Respiratory Virus Panel (PCR) (EDMUNDO) - Final, Complete 08/28/18 MRSA Screen - Final, Complete ROD CAREY MD Aug 29, 2018 14:59
[2018-08-29] MEDS: VANCOMYCIN HCL 1,000 MG, VIAL MATE ADAPTER 1 EACH in D5W 250 ML IV SCH (15:05)
[2018-08-29] MEDS ORDERED: SLF 3 ML SYR IV PRN (16:15)
[2018-08-29] MEDS: SENNA 8.6 MG TAB (SENOKOT) PO SCH (21:00)
[2018-08-29] MEDS: MIRTAZAPINE 15 MG TAB PO SCH (21:04)
[2018-08-29] MEDS: ATORVASTATIN 10 MG TAB PO SCH (21:04)
[2018-08-29] MEDS: SLF 3 ML SYR IV SCH (21:05)
--- NOTE | 2018-08-29 21:37 | ECGEPIP ---
Stationary ECG Study [facility] - ED Test Date: 2018-08-27 Pat Name: GENIE HULL Department: Room: [place] [address] Gender: M [employer]: yon : 1930 Requested By: PASQUALE BROOKS Order Number: [id number] Reading MD: Richar Diaz Measurements Intervals [place] Rate: 103 P: MA: 0 QRS: -21 QRSD: 126 T: 112 QT: 316 QTc: 416 Interpretive Statements Suspected ATRIAL FIBRILLATION WITH RAPID VENTRICULAR RESPONSE with significant artifact Intraventricular conduction delay Electronically Signed On 08-29-2018 21:36:37 EDT by Richar Diaz
[2018-08-30] VITALS (15 sets, daily range): BP systolic 102–159; BP diastolic 50–77
[2018-08-30] MEDS: PIPERACILLIN/TAZOBACTAM SOD 4.5 GM in D5W MINI-BAG PLUS 50 ML IV SCH ×5 (00:08→21:24)
[2018-08-30 05:04] LABS: BASO # 0.1 10^3/uL (0.0-0.2); BASO % 0.4 % (0.0-1.0); EOS % 0.2 % (0.0-3.0); HEMATOCRIT 37.1 % (42.0-52.0); HEMOGLOBIN 11.9 g/dl (13.5-17.5); LYMPH # 1.7 10^3/uL (1.5-4.5); LYMPH % 13.2 % (24.0-44.0); MEAN CORPUSCULAR HGB CONC 32.1 g/dl (32.0-36.5); MEAN CORPUSCULAR VOLUME 87.3 fl (80.0-96.0); MONO # 0.9 10^3/uL (0.0-0.8); MONO % 7.1 % (0.0-5.0); NEUTROPHILS # 10.4 10^3/uL (1.8-7.7); NEUTROPHILS % 78.4 % (36.0-66.0); PLATELET COUNT, AUTOMATED 173 10^3/uL (150-450); RED BLOOD COUNT 4.25 10^6/uL (4.30-6.10); WHITE BLOOD COUNT 13.2 10^3/uL (4.0-10.0)
[2018-08-30 05:31] LABS: BLOOD UREA NITROGEN 19 MG/DL (7-18); CALCIUM LEVEL 7.5 MG/DL (8.8-10.2); CARBON DIOXIDE LEVEL 22 MEQ/L (21-32); CHLORIDE LEVEL 113 MEQ/L (98-107); GLOMERULAR FILTRATION RATE > 60.0 (>35); GLUCOSE, FASTING 93 MG/DL (70-100); POTASSIUM SERUM 3.6 MEQ/L (3.5-5.1); SODIUM LEVEL 141 MEQ/L (136-145)
[2018-08-30] MEDS: LEVOTHYROXINE 125MCG TABLET (0.125MG) PO SCH (05:39)
[2018-08-30] MEDS: SLF 3 ML SYR IV SCH ×3 (05:39→21:24)
--- NOTE | 2018-08-30 08:08 | CR ---
DATE OF CONSULTATION: 08/29/2018 CARDIOLOGY CONSULTATION: INDICATION: "Tachybrady syndrome " HISTORY: This 88-year-old single male, current resident of [facility] has a host of medical problems including smoking induced chronic bronchitis, hypertension, hypercholesterolemia, remote alcoholism, and chronic diarrhea. He was living fairly independently until recently when he was admitted for his chronic diarrhea. His admission April 2018 was also complicated by orthostatic hypotension. Has been known to have an abnormal EKG since at least April 21, 2018 showing sinus rhythm with marked first-degree AV block and left bundle branch block. He was admitted to our emergency room August 27, 2018 with lethargy, productive cough and fevers. Chest x-ray showed a right lower lobe infiltrate, possible aspiration pneumonia. At the time of his presentation, EKGs documented atrial fibrillation with rapid ventricular response. He was given low-dose metoprolol and consideration was being made for oral anticoagulant therapy. Admitted to the intensive care unit. He has had a host of rhythm disturbances with heart rate varying from 40 beats per minute up to 120-130 beats per minute so cardiology consultation was placed this afternoon. The patient himself is unaware of any prior cardiac history. Denies any chest pain. Unaware of his abnormal EKG. No prior stress testing. Will walk on the floors at the [facility] for up to half an hour limited by fatigue and some shortness of breath. Denies orthopnea. Has been completely unaware of his heart action. No previously noted dysrhythmia. Prior history of orthostatic hypotension but denies any recent fall or loss of consciousness. Denies symptoms suggest thromboembolic event. No claudication, but has a history of venous insufficiency following prior leg fractures right distal lower leg more than left. Unaware of prior rheumatic fever, heart murmur or cardiomegaly. CORONARY RISK FACTORS: Advanced age. Remote heavy smoking history. Prior hypertension. Prior hypercholesterolemia. No history of diabetes mellitus or obesity. OTHER PAST MEDICAL/SURGICAL HISTORY: Remote tonsillectomy. Prior colonoscopic examination with colonic polyps. 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 Osteoporosis. Chronic low back pain with sciatica. Prior history of hypothyroidism with TSH as high as 35.28 April 2018, currently on replacement therapy. Other systems review as per his admission history and physical essentially negative. HOME MEDICATIONS: - levofloxacin 125 mcg daily - atorvastatin 10 mg daily at bedtime - omeprazole 20 mg daily - Remeron 15 mg daily at bedtime - calcium with vitamin D one tablet twice daily - MiraLax 17 grams by mouth daily - senna two tablets by mouth daily at bedtime ALLERGIES: None known. PHYSICAL EXAMINATION: Constitutional: Slim somewhat tall, elderly gentleman currently comfortable lying with the head of bed elevated 40 degrees. Has an intermittent dry cough. Vital signs: Heart rate ranging from 48-120 bpm quite irregular. Blood pressure today ranging from 110-157 over 56-90. Respiratory rate 18 per minute, O2 saturation 95% on room air. Has a low grade temperature. Weight 148 pounds, height 76 inches, BMI 18. Eyes: Normal conjunctivae and lids. No xanthelasma. ENT/Mouth: Normal oral moisture. No central cyanosis. Neck: Trachea midline. Neck veins did not appear to be elevated. Thyroid was not obviously enlarged. Respiratory: Increased anteroposterior chest configuration with obvious pectus excavatum. Fair air entry over both lung kay with somewhat coarse inspiratory rales over the right lower lobe posteriorly. Slight prolongation of expiration but no audible wheeze. Cardiovascular: Apical impulse displaced laterally because of his pectus excavatum. S1 and S2 were distant but variable. Unable to detect any gallop or murmur. Normal carotid upstroke but variable volume related to his arrhythmia. No bruits. Upper extremity pulses and femoral pulses were symmetrical and normal. Pedal pulses were symmetrically decreased. Has few superficial venules both lower legs with slight pitting of the distal right lower leg but not the left. Abdominal aorta was not palpable. No sacral pitting edema. Extremities: No clubbing, peripheral cyanosis or splinter hemorrhages. GI: Scaphoid currently nontender abdomen with no hepatosplenomegaly. Rectal examination not indicated. Musculoskeletal: Has obvious proximal muscle weakness and wasting but normal tone. Spine curvature was normal. Neuro/psych: Slight: Bright, alert and oriented. Gave a fair history. Normal symmetrical eye, facial, and extremity movements. No involuntary movements. Skin: Degenerative changes skin of both lower legs. No ecchymotic lesions, pallor or icterus. Investigations: PA and left lateral chest x-ray August 27, 2018 was reviewed independently and shows a displaced apex and seeming cardiomegaly but only because of his pectus excavatum. Thoracic aorta is slightly unfolded with some calcification aortic arch. Pulmonary vasculature appeared to be normal. Somewhat hyperinflated lung kay with increased interstitial markings suggestive of pulmonary fibrosis. Has a fairly localized right lung infiltrate. No pleural effusion. Thoracic scoliosis convex right. EKG: Tracing from August 27, 2018 shows underlying sinus rhythm with frequent PACs virtually occurring in a bigeminal pattern. Left atrial conduction disturbance with first-degree AV block, left axis deviation with left bundle branch block. Atrial ectopy is certainly increased from April 2018. GOVERNMENT CLERK STRIPS: These show underlying sinus rhythm with frequent atrial bigeminy with non-conducted PACs and heart rates as low as 40 beats per minute alternating with PSVT that appears to be AV blessing reentry with retrograde atrial activity visible in the ST segments of each QRS complex. Has first- degree AV block but intermittent dropped QRS complexes. ECHOCARDIOGRAM: Performed 08/28/18 () reportedly showed normal cardiac chamber sizes, wall thickness and wall motion, yet degree of LV diastolic dysfunction and moderate pulmonary hypertension. IVC size 2.2 cm with reduced respiratory collapse suggestive of elevated central venous pressure. Subtle aortic valvular sclerosis and mitral annular thickening without functional valvular abnormality. Slightly dilated aortic root (4.1 cm). No pericardial effusion. BLOOD WORK: His admission hemoglobin was 15 and with IV fluid hydration this has dropped to 12. Initial white blood cell count had been as high as 34,000 and this has dropped to 15.700, platelet count is normal. His PT/INR are normal. PTT was normal. Chemistry today shows electrolyte balance with BUN 26, creatinine 0.87, fasting glucose was normal at 75. Admission liver function studies were normal with serum albumin 3.7. Ultra sensitive TSH was normal at 1.2 on his replacement therapy. Other liver function studies were normal. IMPRESSION/PLAN: 1. Tachybrady syndrome: Has evidence of impressive bradyarrhythmia with non-conducted PACs as well as fairly rapid PSVT. His current pneumonia may be contributing to the frequency of his ectopic activity but I concur this is likely a degenerative process and he is at increased risk of potential symptomatic bradyarrhythmia and fall. Even at his advanced age, permanent pacemaker implantation is believed to be less potentially challenging than hip or fractured femur repair. I have discussed the indication, procedure and potential risks of permanent pacemaker implantation with the patient and his niece Lulu Lr. The understanding is once his pacemaker is in place, it is safe for us to administer negative chronotropic therapy to prevent his tachyarrhythmias. 2. Abnormal EKG/first-degree AV block/left bundle branch block: Also manifestations of his degenerative conduction tissue disease and his increased risk for symptomatic bradyarrhythmia as alluded to above. Negative chronotropic therapy would not be safe to be administered with such a marked first-degree AV block and evidence of blocked atrial activity. 3. Hypertensive heart disease (benign without heart failure): His current blood pressure is quite variable related to his arrhythmia. Obviously it will be easier for us to manage this problem. His rhythm could be regularized. Currently not in any heart failure and renal function is virtually normal. Ultrasensitive TSH is in a physiological range consistent with appropriate thyroid hormone replacement. 4. Pulmonary hypertension: Likely a reflection of his chest configuration and prior long-standing smoking history with radiographic evidence of pulmonary fibrosis. Neck veins currently did not appear to be elevated. Has a slight degree of asymmetrical distal lower extremity pitting due to peripheral venous disease. O2 saturation on room air here has been fine. [place] management would be optimal treatment of his pneumonia. At this point, the patient has elected to consider this further in light of his advanced age. He is currently DNR but does not request comfort care at this time. We will plan on checking with him tomorrow regarding his decision and appreciate the opportunity to participate in his care. Best regards, Jaxson Galeano MD, [facility]
[2018-08-30] MEDS: ASPIRIN 81 MG ENTERIC TAB PO SCH (08:32)
[2018-08-30] MEDS: MIRALAX *UNIT DOSE* 17GM PACKET PO SCH (08:32)
[2018-08-30] MEDS: OMEPRAZOLE 20 MG CAP PO SCH (08:32)
[2018-08-30] MEDS: ENOXAPARIN 40 MG/0.4 ML SYRINGE (J1650) SC SCH (08:33)
[2018-08-30] MEDS: METOPROLOL SUCC *XL* 25MG TAB (TopROL *XL*) PO SCH (09:00)
[2018-08-30] MEDS ORDERED: LACTATED RINGER'S 1000 ML IV ONE (11:30)
[2018-08-30] MEDS ORDERED: LR 1,000 ML IV SCH (12:30)
--- NOTE | 2018-08-30 12:57 | IPNPDOC ---
Subjective Date Seen The patient was seen on 08/30/18. Subjective Chief Complaint/HPI Patient seen and examined at the bedside. Does not offer any acute complaints at this time. The patient was evaluated by cardiology yesterday for tachybrady syndrome, and is tentatively scheduled to have a pacemaker placed. Objective Physical Examination General Exam: Positive: Alert, Cooperative, No Acute Distress ENT Exam: Positive: Atraumatic, Mucous membr. moist/pink Chest Exam: Positive: Diminished Heart Exam: Positive: Rate Normal, Normal S1, Normal S2 Telemetry: Positive: Sinus, PVCs Abdomen Exam: Positive: Soft; Negative: Tenderness Extremity Exam: Negative: Tenderness, Swelling Psych Exam: Positive: Oriented x 3 Assessment /Plan Plan/VTE VTE Prophylaxis Ordered?: Yes Plan HCAP, possible Aspiration Pneumonia Respiratory status improved following treatment WBC trending downward Cont IV Zosyn Cont Respiratory therapy and duonebs prn We will cont to monitor Respiratory status PT ordered for functional optimization. 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 Cardiology on board--patient tentatively scheduled for pacemaker placement Dysphagia Speech/Swallow noted--barium swallow study ordered Lactic Acidosis 2/2 Above, resolved s/p IVF Hydration Hypothyroidism Cont levothyroxine Hyperlipidemia Statin GERD Cont PPI DVT prophylaxis Lovenox SC VS, I&O, 24H, Fishbone Vital Signs/I&O Vital Signs Date Time Temp Pulse Resp B/P (MAP) Pulse Ox O2 Delivery O2 Flow Rate FiO2 08/30/18 12:00 98.8 62 18 112/55 (74) 95 08/28/18 00:16 Room Air I&O- Last 24 Hours up to 6 AM 08/30/18 06:00 Intake Total 1070 ml Output Total 475 ml Balance 595 ml Laboratory Data 24H LABS Laboratory Tests 2 08/29/18 13:48: Vancomycin Level Trough 7.1L 08/30/18 04:44: Immature Granulocyte % (Auto) 0.7, White Blood Count 13.2H, Red Blood Count 4.25L, Hemoglobin 11.9L, Hematocrit 37.1L, Mean Corpuscular Volume 87.3, Mean Corpuscular Hemoglobin 28.0, Mean Corpuscular Hemoglobin Concent 32.1, Red Cell Distribution Width 14.8H, Platelet Count 173, Neutrophils (%) (Auto) 78.4H, Lymphocytes (%) (Auto) 13.2L, Monocytes (%) (Auto) 7.1H, Eosinophils (%) (Auto) 0.2, Basophils (%) (Auto) 0.4, Neutrophils # (Auto) 10.4H, Lymphocytes # (Auto) 1.7, Monocytes # (Auto) 0.9H, Eosinophils # (Auto) 0.0, Basophils # (Auto) 0.1, Nucleated Red Blood Cells % (auto) 0.0, Anion Gap 6L, Glomerular Filtration Rate > 60.0, Blood Urea Nitrogen 19H, Creatinine 0.80, Sodium Level 141, Potassium Level 3.6, Chloride Level 113H, Carbon Dioxide Level 22, Calcium Level 7.5L CBC/BMP Laboratory Tests 08/30/18 04:44 Red Blood Count 4.25 L, Mean Corpuscular Volume 87.3, Mean Corpuscular He moglobin 28.0, Mean Corpuscular Hemoglobin Concent 32.1, Red Cell Distribution Width 14.8 H, Neutrophils (%) (Auto) 78.4 H, Lymphocytes (%) (Auto) 13.2 L, Monocytes (%) (Auto) 7.1 H, Eosinophils (%) (Auto) 0.2, Basophils (%) (Auto) 0.4, Neutrophils # (Auto) 10.4 H, Lymphocytes # (Auto) 1.7, Monocytes # (Auto) 0.9 H, Eosinophils # (Auto) 0.0, Basophils # (Auto) 0.1, Calcium Level 7.5 L Microbiology Microbiology 08/27/18 Blood Culture - Preliminary, Resulted No Growth after 48 hours. All Specime... 08/27/18 Blood Culture - Preliminary, Resulted No Growth after 48 hours. All Specime... 08/28/18 Respiratory Virus Panel (PCR) ([facility]) - Final, Complete 08/28/18 MRSA Screen - Final, Complete ROD CAREY MD Aug 30, 2018 12:57
[2018-08-30] MEDS ORDERED: PROPOFOL 200 MG/20 ML VIAL As Ordered ONE (16:10)
[2018-08-30] MEDS ORDERED: AMIODARONE HCL 360 MG/200 ML PREMIXED BAG (NEXTERONE) As Ordered ONE (16:20)
[2018-08-30] MEDS ORDERED: ISOVUE-300 61% 50ML VIAL (Q9967) As Ordered ONE (16:20)
[2018-08-30] MEDS ORDERED: LIDOCAINE 1% SDV INJ 30 ML VIAL As Ordered ONE (16:20)
[2018-08-30] MEDS ORDERED: BACITRACIN PWD 50,000 UNITS VIAL As Ordered ONE (16:21)
[2018-08-30] MEDS ORDERED: MIDAZOLAM INJ 2 MG/2 ML VIAL (J2250) As Ordered ONE (16:22)
[2018-08-30] MEDS ORDERED: fentaNYL 100 MCG/2 ML INJECTION (J3010) As Ordered ONE (16:23)
[2018-08-30] MEDS ORDERED: ZOSYN 2.25 GM VIAL (J2543) As Ordered ONE (17:05)
[2018-08-30] MEDS ORDERED: ePHEDrine SULFATE 25 MG/5 ML(5MG/ML) SYRINGE As Ordered ONE (17:22)
--- NOTE | 2018-08-30 18:38 | RO ---
DATE OF PROCEDURE: 08/30/2018 IMPLANTATION OF PERMANENT DUAL-CHAMBER PACEMAKER IMPLANTING WARP TYING MACHINE KNOTTER: Dr. Jaxson Galeano ANESTHESIOLOGIST: Dr. Crowell. PREOPERATIVE DIAGNOSIS: 1. Tachy rhonda syndrome. 2. Marked first degree AV block. 3. Left bundle branch block. POSTOPERATIVE DIAGNOSIS: 1. Tachy rhonda syndrome. 2. Marked first degree AV block. 3. Left bundle branch block. ANESTHESIA: Monitored local anesthesia. DESCRIPTION OF PROCEDURE: With the patient in the fasting state having received Zofran IV antibiotic prophylaxis and having signed informed consent he was taken to the operating theater. Numerous skin electrodes were applied to facilitate continuous electrocardiographic monitoring. The left subclavian region was prepped and draped in usual fashion and the skin was infiltrated with 1% Xylocaine. The left axillary vein was catheterized using the micropuncture technique and a 5-cm linear incision was made several centimeters below and parallel to the left clavicle. Dissection was carried down to level of the pectoralis fascia and a pocket was fashioned below the level of the incision line. Two bipolar screw-in active fixation steroid eluding pacing leads were then positioned under fluoroscopic electrocardiographic control to the right ventricular apex and high right atrial appendage respectively. The right ventricular lead ([employer] model number [id number]/58, serial number [id number]) measurements were focal and stimulation threshold 0.75 V / 0.4 ms/impedance 440 ohms. The R wave amplitude measured 4.6 mV. The atrial lead ([employer] model TJJ8045I/52, serial number [id number]) measurements were focal and stimulation threshold 1.3, V / 0.4 ms/impedance 430 ohms. The P-wave amplitude measured 1.5 mV. These leads were secured in position with sleeves sutured at their insertion site. There were then connected to a dual-chamber pulse generator ([employer] - Assurity MRI compatible model number [id number], serial number [id number]) and appropriate DD pacing was documented. The pulse generator was placed in the pocket and secured in position with a suture through the upper right-hand corner of the epoxy header. The subcutaneous tissues were approximated using a running chromic suture and skin was closed using yaakov. A dry dressing was applied. The patient was returned to recovery room in good condition. ESTIMATED BLOOD LOSS: 5 mL. COMPLICATIONS: No apparent complications. At this point he will be able to continue on telemetry and will be starting combination metoprolol succinate and flecainide to control his tachyarrhythmias.
--- NOTE | 2018-08-30 18:44 | REP ---
Portable chest, single semi upright AP view, 06:16 p.m., post pacemaker placement: Comparison is 08/27/2018. There is a dual-chamber pacemaker entering from left with the pacing tips in satisfactory locations in this single projection as an interval change. There are is a surgical staple line adjacent to the pacemaker generator. There is no pneumothorax or hemothorax. Cardiac size is normal. The jagdish and mediastinum are unchanged. There is chronic interstitial coarsening as previously. Impression: Dual chamber pacemaker as described. No pneumothorax or hemothorax. Electronically Signed by Rajiv Madrigal MD 08/30/2018 06:36 P
--- NOTE | 2018-08-30 20:15 | ECGEPIP ---
Stationary ECG Study [facility] Test Date: 2018-08-30 Pat Name: GENIE HULL Department: Room: [place] [address] Gender: M Licensing Coordinator: RASHEEDA : 1930 Requested By: Genie Galeano Order Number: [id number] Reading MD: Alexis Cruz Measurements Intervals [place] Rate: 78 P: 259 [place]: 193 QRS: -74 QRSD: 143 T: 89 QT: 430 QTc: 492 Interpretive Statements AV sequential pacemaker Pacemaker activity is new since prior tracing of 08/27/2018 Electronically Signed On 08-30-2018 20:15:29 EDT by Alexis Cruz
[2018-08-30] MEDS: ATORVASTATIN 10 MG TAB PO SCH (21:00)
[2018-08-30] MEDS: FLECAINIDE 50MG TABLET PO SCH (21:23)
[2018-08-30] MEDS: MIRTAZAPINE 15 MG TAB PO SCH (21:23)
[2018-08-30] MEDS: SENNA 8.6 MG TAB (SENOKOT) PO SCH (21:23)
[2018-08-31] VITALS (14 sets, daily range): BP systolic 94–158; BP diastolic 51–79
[2018-08-31] MEDS: PIPERACILLIN/TAZOBACTAM SOD 4.5 GM in D5W MINI-BAG PLUS 50 ML IV SCH ×4 (05:13→23:00)
[2018-08-31] MEDS: LEVOTHYROXINE 125MCG TABLET (0.125MG) PO SCH (05:13)
[2018-08-31] MEDS: SLF 3 ML SYR IV SCH ×3 (05:13→20:14)
[2018-08-31 05:27] LABS: BASO # 0.1 10^3/uL (0.0-0.2); BASO % 0.6 % (0.0-1.0); EOS # 0.1 10^3/uL (0.0-0.50); EOS % 0.6 % (0.0-3.0); HEMATOCRIT 37.4 % (42.0-52.0); HEMOGLOBIN 12.2 g/dl (13.5-17.5); LYMPH # 1.7 10^3/uL (1.5-4.5); LYMPH % 14.7 % (24.0-44.0); MEAN CORPUSCULAR HEMOGLOBIN 28.4 pg (27.0-33.0); MEAN CORPUSCULAR HGB CONC 32.6 g/dl (32.0-36.5); MEAN CORPUSCULAR VOLUME 87.2 fl (80.0-96.0); MONO # 0.8 10^3/uL (0.0-0.8); MONO % 7.3 % (0.0-5.0); NEUTROPHILS # 8.6 10^3/uL (1.8-7.7); NEUTROPHILS % 76.2 % (36.0-66.0); PLATELET COUNT, AUTOMATED 157 10^3/uL (150-450); RED BLOOD COUNT 4.29 10^6/uL (4.30-6.10); WHITE BLOOD COUNT 11.3 10^3/uL (4.0-10.0)
[2018-08-31 05:31] LABS: BLOOD UREA NITROGEN 15 MG/DL (7-18); CALCIUM LEVEL 7.4 MG/DL (8.8-10.2); CARBON DIOXIDE LEVEL 25 MEQ/L (21-32); CHLORIDE LEVEL 110 MEQ/L (98-107); CREATININE FOR GFR 0.51 MG/DL (0.70-1.30); GLOMERULAR FILTRATION RATE > 60.0 (>35); GLUCOSE, FASTING 79 MG/DL (70-100); POTASSIUM SERUM 3.8 MEQ/L (3.5-5.1); SODIUM LEVEL 141 MEQ/L (136-145)
[2018-08-31] MEDS: MIRALAX *UNIT DOSE* 17GM PACKET PO SCH (08:47)
[2018-08-31] MEDS: ASPIRIN 81 MG ENTERIC TAB PO SCH (08:48)
[2018-08-31] MEDS: OMEPRAZOLE 20 MG CAP PO SCH (08:48)
[2018-08-31] MEDS: FLECAINIDE 50MG TABLET PO SCH ×2 (08:54→20:14)
[2018-08-31] MEDS: METOPROLOL SUCC *XL* 25MG TAB (TopROL *XL*) PO SCH (08:54)
[2018-08-31] MEDS: ENOXAPARIN 40 MG/0.4 ML SYRINGE (J1650) SC SCH (08:56)
[2018-08-31] MEDS ORDERED: VARIBAR PUDDING 40% w/v 230ML TUBE As Ordered ONE (14:42)
--- NOTE | 2018-08-31 15:03 | IPNPDOC ---
Subjective Date Seen The patient was seen on 08/31/18. Subjective Chief Complaint/HPI Patient seen and examined at the bedside. Patient had pacemaker placed yesterday without any acute events. This morning, the patient states that he is feeling well and denies any acute complaints. Objective Physical Examination General Exam: Positive: Alert, Cooperative, No Acute Distress ENT Exam: Positive: Atraumatic, Mucous membr. moist/pink Chest Exam: Positive: Diminished Heart Exam: Positive: Rate Normal, Normal S1, Normal S2 Telemetry: Positive: Sinus, PVCs Abdomen Exam: Positive: Soft; Negative: Tenderness Extremity Exam: Negative: Tenderness, Swelling Psych Exam: Positive: Oriented x 3 Assessment /Plan Plan/VTE VTE Prophylaxis Ordered?: Yes Plan HCAP, possible Aspiration Pneumonia Respiratory status improved following treatment WBC trending downward Cont IV Zosyn Cont Respiratory therapy and duonebs prn We will cont to monitor Respiratory status PT ordered for functional optimization. 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 Cardiology on board-->s/p Dual Chamber Pacemaker Placement Dysphagia Speech/Swallow noted--barium swallow study ordered for this AM We will follow up Lactic Acidosis 2/2 Above, resolved s/p IVF Hydration Hypothyroidism Cont levothyroxine Hyperlipidemia Statin GERD Cont PPI DVT prophylaxis Lovenox SC Disposition-pending continued clinical improvement, functional optimization with physical therapy. VS, I&O, 24H, [facility] Vital Signs/I&O Vital Signs Date Time Temp Pulse Resp B/P (MAP) Pulse Ox O2 Delivery O2 Flow Rate FiO2 08/31/18 12:00 98.4 73 21 151/68 (95) 97 08/28/18 00:16 Room Air I&O- Last 24 Hours up to 6 AM 08/31/18 06:00 Intake Total 1135 ml Output Total 485 ml Balance 650 ml Laboratory Data 24H LABS Laboratory Tests 2 08/31/18 04:55: Immature Granulocyte % (Auto) 0.6, White Blood Count 11.3H, Red Blood Count 4.29L, Hemoglobin 12.2L, Hematocrit 37.4L, Mean Corpuscular Volume 87.2, Mean Corpuscular Hemoglobin 28.4, Mean Corpuscular Hemoglobin Concent 32.6, Red Cell Distribution Width 14.7H, Platelet Count 157, Neutrophils (%) (Auto) 76.2H, Lymphocytes (%) (Auto) 14.7L, Monocytes (%) (Auto) 7.3H, Eosinophils (%) (Auto) 0.6, Basophils (%) (Auto) 0.6, Neutrophils # (Auto) 8.6H, Lymphocytes # (Auto) 1.7, Monocytes # (Auto) 0.8, Eosinophils # (Auto) 0.1, Basophils # (Auto) 0.1, Nucleated Red Blood Cells % (auto) 0.0, Anion Gap 6L, Glomerular Filtration Rate > 60.0, Blood Urea Nitrogen 15, Creatinine 0.51L, Sodium Level 141, Potassium Level 3.8, Chloride Level 110H, Carbon Dioxide Level 25, Calcium Level 7.4L CBC/BMP Laboratory Tests 08/31/18 04:55 Red Blood Count 4.29 L, Mean Corpuscular Volume 87.2, Mean Corpuscular Hemoglobin 28.4, Mean Corpuscular Hemoglobin Concent 32.6, Red Cell Distribution Width 14.7 H, Neutrophils (%) (Auto) 76.2 H, Lymphocytes (%) (Auto) 14.7 L, Monocytes (%) (Auto) 7.3 H, Eosinophils (%) (Auto) 0.6, Basophils (%) (Auto) 0.6, Neutrophils # (Auto) 8.6 H, Lymphocytes # (Auto) 1.7, Monocytes # (Auto) 0.8, Eosinophils # (Auto) 0.1, Basophils # (Auto) 0.1, Calcium Level 7.4 L Microbiology Microbiology 08/27/18 Blood Culture - Preliminary, Resulted No Growth after 72 hours. All specime... 08/27/18 Blood Culture - Preliminary, Resulted No Growth after 72 hours. All specime... 08/28/18 Respiratory Virus Panel (PCR) ([facility]) - Final, Complete 08/28/18 MRSA Screen - Final, Complete ROD CAREY MD Aug 31, 2018 15:03
--- NOTE | 2018-08-31 16:19 | NUR ---
Pt presents with mild oral phase dysphagia and severe pharyngeal phase dysphagia as characterized by: silent aspiration of nectar and honey thick liquids. Minimal penetration noted with puree solid. Moist solids cleared with multiple swallows. Observed multiple swallows, throat clear, wet vocal quality and regurgitation to clear solids. Noted cricopharyngeus dysfunction. Recommend: Level 2 solids and pudding thick liquids. MD consider endoscopy for esophageal function. Addendum: 08/31/18 at 1620 by ELVIRA LOMBARDI [facility] ALEX Amended: Links added.
--- NOTE | 2018-08-31 17:38 | ECGEPIP ---
Stationary ECG Study [facility] Test Date: 2018-08-31 Pat Name: GENIE HULL Department: Room: [place] [address] Gender: M Loft Worker: JOVANNY : 1930 Requested By: Genie Galeano Order Number: [id number] Reading MD: Alexis Cruz Measurements Intervals [place] Rate: 73 P: 260 [place]: 182 QRS: -74 QRSD: 152 T: 86 QT: 448 QTc: 496 Interpretive Statements AV sequential pacemaker No significant change since prior tracing of 08/30/2018 Electronically Signed On 08-31-2018 17:38:03 EDT by Alexis Cruz
[2018-08-31] MEDS: MIRTAZAPINE 15 MG TAB PO SCH (20:14)
[2018-08-31] MEDS: SENNA 8.6 MG TAB (SENOKOT) PO SCH (20:14)
[2018-08-31] MEDS: ATORVASTATIN 10 MG TAB PO SCH (20:14)
--- NOTE | 2018-08-31 21:49 | REP ---
COOKIE SWALLOW The procedure was performed under the direct supervision of Dr. Hercules The procedure was performed with Karlene Ramsey from speech pathology present. 5 ml aliquots of nectar, pudding, solid and honey consistency barium was administered. With nectar and honey consistency barium there is laryngeal aspiration without cough response. The detailed report of this examination will be provided by speech pathology. 2.8 minutes of fluoroscopy time was utilized for this procedure. Reviewed by DESTINY Lamas 08/31/2018 04:17 P Electronically Signed by Dick Hercules MD 08/31/2018 09:40 P
[2018-09-01] VITALS: BP 123/62
[2018-09-01 04:00] VITALS: BP 132/83
[2018-09-01 05:16] LABS: BASO # 0.1 10^3/uL (0.0-0.2); BASO % 0.7 % (0.0-1.0); EOS # 0.2 10^3/uL (0.0-0.50); EOS % 2.5 % (0.0-3.0); HEMATOCRIT 38.5 % (42.0-52.0); HEMOGLOBIN 12.4 g/dl (13.5-17.5); LYMPH # 2.3 10^3/uL (1.5-4.5); LYMPH % 23.2 % (24.0-44.0); MEAN CORPUSCULAR HGB CONC 32.2 g/dl (32.0-36.5); MEAN CORPUSCULAR VOLUME 86.9 fl (80.0-96.0); MONO # 0.9 10^3/uL (0.0-0.8); MONO % 9.5 % (0.0-5.0); NEUTROPHILS # 6.1 10^3/uL (1.8-7.7); NEUTROPHILS % 62.6 % (36.0-66.0); PLATELET COUNT, AUTOMATED 184 10^3/uL (150-450); RED BLOOD COUNT 4.43 10^6/uL (4.30-6.10); WHITE BLOOD COUNT 9.7 10^3/uL (4.0-10.0)
[2018-09-01] MEDS: PIPERACILLIN/TAZOBACTAM SOD 4.5 GM in D5W MINI-BAG PLUS 50 ML IV SCH ×4 (05:22→22:50)
[2018-09-01] MEDS: LEVOTHYROXINE 125MCG TABLET (0.125MG) PO SCH (05:22)
[2018-09-01] MEDS: SLF 3 ML SYR IV SCH ×3 (05:23→22:50)
[2018-09-01 05:36] LABS: BLOOD UREA NITROGEN 14 MG/DL (7-18); CALCIUM LEVEL 7.6 MG/DL (8.8-10.2); CARBON DIOXIDE LEVEL 27 MEQ/L (21-32); CHLORIDE LEVEL 109 MEQ/L (98-107); GLOMERULAR FILTRATION RATE > 60.0 (>35); GLUCOSE, FASTING 86 MG/DL (70-100); POTASSIUM SERUM 3.9 MEQ/L (3.5-5.1); SODIUM LEVEL 142 MEQ/L (136-145)
[2018-09-01 08:00] VITALS: BP 160/69
[2018-09-01] MEDS: ENOXAPARIN 40 MG/0.4 ML SYRINGE (J1650) SC SCH (08:29)
[2018-09-01] MEDS: METOPROLOL SUCC *XL* 25MG TAB (TopROL *XL*) PO SCH (08:30)
[2018-09-01] MEDS: FLECAINIDE 50MG TABLET PO SCH ×2 (08:30→20:46)
[2018-09-01] MEDS: OMEPRAZOLE 20 MG CAP PO SCH (08:30)
[2018-09-01] MEDS: MIRALAX *UNIT DOSE* 17GM PACKET PO SCH (08:31)
[2018-09-01] MEDS: ASPIRIN 81 MG ENTERIC TAB PO SCH (08:31)
--- NOTE | 2018-09-01 14:29 | IPNPDOC ---
Subjective Date Seen The patient was seen on 09/01/18. Subjective Chief Complaint/HPI No complaints this am , Does not like his dysphagia diet. Still very weak and getting easily winded. Objective Physical Examination General Exam: Positive: Alert, Cooperative, No Acute Distress ENT Exam: Positive: Atraumatic, Mucous membr. moist/pink Chest Exam: Positive: Diminished Heart Exam: Positive: Rate Normal, Normal S1, Normal S2 Telemetry: Positive: Sinus, PVCs, Other Telemetry: (intermittent paced) Abdomen Exam: Positive: Soft; Negative: Tenderness Extremity Exam: Negative: Tenderness, Swelling Skin Exam: Positive: Nl turgor and temperature Neuro Exam: Positive: Normal Speech Psych Exam: Positive: Oriented x 3 Assessment /Plan Assessment Patient is an 88 year old male with a past medical history significant hypothyroidism and hyperlipidemia who presented to the [facility] ER from [facility] with complaint of "not feeling well" Patient stated that a few days ago he had started feeling ill. He stated that at the time he had an upset s tomach and some diarrhea. He was noted to be coughing continuously. In the ER the patient was found to be febrile with an elevated white count and lactic acid. Additionally, he was found to be in Atrial fibrillation with RVR. He denies any past history of Atrial fibrillation and review of patients chart did not show a diagnosis in the past. In addition, patient received a chest x-ray which demonstrated a right lobe infiltrate. He was admitted for Pneumonia , Afib with rvr. HCAP Vs Aspiration Pneumonia Respiratory status improved following treatment WBC trending downward Cont IV Zosyn Cont Respiratory therapy and duonebs prn We will cont to monitor Respiratory status PT ordered for functional optimization. 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 Cardiology on board-->s/p Dual Chamber Pacemaker Placement Dysphagia Speech/Swallow noted mild oral phase dysphagia and severe pharyngeal phase dysphagia as characterized by: silent aspiration of nectar and honey thick liquids. Minimal penetration noted with puree solid. Moist solids cleared with multiple swallows. Observed multiple swallows, throat clear, wet vocal quality and regurgitation to clear solids. Noted cricopharyngeus dysfunction. Diet: Level 2 solids and pudding thick liquids. Possible endoscopy as outpatient. Lactic Acidosis 2/2 Above, resolved s/p IVF Hydration Hypothyroidism Cont levothyroxine Hyperlipidemia Statin GERD Cont PPI DVT prophylaxis Lovenox SC Disposition-pending continued clinical improvement, functional optimization with physical therapy. Plan/VTE VTE Prophylaxis Ordered?: Yes VS, I&O, 24H, Fishbone Vital Signs/I&O Vital Signs Date Time Temp Pulse Resp B/P (MAP) Pulse Ox O2 Delivery O2 Flow Rate FiO2 09/01/18 08:30 75 160/69 09/01/18 08:00 97.9 22 94 08/28/18 00:16 Room Air I&O- Last 24 Hours up to 6 AM 09/01/18 05:59 Intake Total 810 ml Output Total 850 ml Balance -40 ml Laboratory Data 24H LABS Laboratory Tests 2 09/01/18 04:36: Immature Granulocyte % (Auto) 1.5, White Blood Count 9.7, Red Blood Count 4.43, Hemoglobin 12.4L, Hematocrit 38.5L, Mean Corpuscular Volume 86.9, Mean Corpuscular Hemoglobin 28.0, Mean Corpuscular Hemoglobin Concent 32.2, Red Cell Distribution Width 14.6H, Platelet Count 184, Neutrophils (%) (Auto) 62.6, Lymphocytes (%) (Auto) 23.2L, Monocytes (%) (Auto) 9.5H, Eosinophils (%) (Auto) 2.5, Basophils (%) (Auto) 0.7, Neutrophils # (Auto) 6.1, Lymphocytes # (Auto) 2.3, Monocytes # (Auto) 0.9H, Eosinophils # (Auto) 0.2, Basophils # (Auto) 0.1, Nucleated Red Blood Cells % (auto) 0.0, Anion Gap 6L, Glomerular Filtration Rate > 60.0, Blood Urea Nitrogen 14, Creatinine 0.70, Sodium Level 142, Potassium Level 3.9, Chloride Level 109H, Carbon Dioxide Level 27, Calcium Level 7.6L CBC/BMP Laboratory Tests 09/01/18 04:36 Red Blood Count 4.43, Mean Corpuscular Volume 86.9, Mean Corpuscular Hemoglobin 28.0, Mean Corpuscular Hemoglobin Concent 32.2, Red Cell Distribution Width 14.6 H, Neutrophils (%) (Auto) 62.6, Lymphocytes (%) (Auto) 23.2 L, Monocytes (%) (Auto) 9.5 H, Eosinophils (%) (Auto) 2.5, Basophils (%) (Auto) 0.7, Neutrophils # (Auto) 6.1, Lymphocytes # (Auto) 2.3, Monocytes # (Auto) 0.9 H, Eosinophils # (Auto) 0.2, Basophils # (Auto) 0.1, Calcium Level 7.6 L Microbiology Microbiology 08/27/18 Blood Culture - Preliminary, Resulted No Growth after 72 hours. All specime... 08/27/18 Blood Culture - Preliminary, Resulted No Growth after 72 hours. All specime... 08/28/18 Respiratory Virus Panel (PCR) ([facility]) - Final, Complete 08/28/18 MRSA Screen - Final, Complete SCOTTY HAYWARD MD Sep 01, 2018 14:29
[2018-09-01 15:25] VITALS: BP 141/67
--- NOTE | 2018-09-01 19:09 | IPN ---
DATE: 09/01/2018 CARDIOLOGY PROGRESS NOTE SUBJECTIVE: The patient claims not to be too sore at his pacemaker incision site. Feels he is gaining strength on a daily basis. Has been up in the chair with assistance. No shortness of breath. Remains free of any awareness of his heart action. He has tolerated his current medications without adverse effect. OBJECTIVE: Pleasant, slim, tall, elderly gentleman lying comfortably with the head of bed elevated 40 degrees. Heart rate 70 beats per minute (BPM) with occasional irregularity. Blood pressure 141/67, respiratory rate 18 with oxygen saturation 94% on room air. Afebrile. According to the electronic medical record (EMR), his weight has decreased by approximately 5 kg while he has been in hospital (question). Bright and alert in no distress. Normal oral moisture. No central cyanosis. Trachea midline. Neck veins were not elevated. A slightly increased anteroposterior chest diameter with obvious pectus excavatum. Healing left subclavian pacer incision with small hematoma. Dressing was changed today. Has no dependent edema. PA and left lateral chest x-ray yesterday was reviewed independently and shows the slack in his atrial and ventricular pacing lead when he stands is decreased from his postoperative portable upright study. No pneumothorax. Postoperative EKGs show consistent appropriate atrioventricular (AV) sequential pacing with intermittent sensing of atrial activity, tracking, and ventricular pacing. Paced QRS complexes having leftward axis and left bundle branch block appearance, in keeping with right ventricular (RV) apical stimulation. Blood work: Studies done today showed that is hemoglobin stable at 12.4. Normal white blood cell count and platelet count. Electrolytes were normal. BUN 14, down from 31 on admission. Creatinine down from 1.12 to 0.5 today. Fasting glucose 86. Complete pacemaker interrogation: [employer], [employer]urity, MRI compatible, model #[id number]. Intracardiac electrograms remained excellent with P wave measuring 3.2 mV and R wave amplitude measuring 6.2 mV. Ventricular pacing threshold remains excellent, but his atrial pacing threshold has increased. We have adjusted atrial pacing pulse width to 0.8 msec and activated his ACAP confirm function. Current pacing threshold in the atrium is 1.875. 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 No further paroxysmal supraventricular tachycardia (PSVT) has been observed. 2. Abnormal EKG/first-degree AV block/left bundle branch block/dual-chamber pacemaker in situ: Small hematoma, but otherwise his incision is healing well. Complete pacemaker interrogation shows an increase in atrial pacing threshold but excellent intra-atrial electrogram. We have made adjustments in his program to ensure adequate atrial pacing margin. 3. Hypertensive heart disease (benign without heart failure): Currently on low-dose metoprolol succinate. His present blood pressure is adequately controlled. With his controlled heart rate, he has actually lost weight in hospital, and renal function has improved. 4. Pulmonary hypertension: Despite this echocardiographic finding, chest x-ray shows fairly normal pulmonary vasculature, and his neck veins were not elevated. Has no dependent edema at this time. From our standpoint, it would be fine for him to be discharged once cleared by internal medicine on his metoprolol succinate 25 mg daily, flecainide 50 mg twice a day, and aspirin 81 mg daily. Our office will call for an appointment for staple removal in 1 week.
[2018-09-01] MEDS: SENNA 8.6 MG TAB (SENOKOT) PO SCH (20:46)
[2018-09-01] MEDS: ATORVASTATIN 10 MG TAB PO SCH (20:46)
[2018-09-01] MEDS: MIRTAZAPINE 15 MG TAB PO SCH (20:46)
[2018-09-01 22:00] VITALS: BP 131/65
[2018-09-02] MEDS: LEVOTHYROXINE 125MCG TABLET (0.125MG) PO SCH ×2 (05:30→10:17)
[2018-09-02] MEDS: PIPERACILLIN/TAZOBACTAM SOD 4.5 GM in D5W MINI-BAG PLUS 50 ML IV SCH ×2 (05:30→10:25)
[2018-09-02] MEDS: SLF 3 ML SYR IV SCH (05:31)
[2018-09-02 06:00] VITALS: BP 141/68
[2018-09-02 06:09] LABS: BASO # 0.2 10^3/uL (0.0-0.2); BASO % 1.3 % (0.0-1.0); EOS # 0.3 10^3/uL (0.0-0.50); EOS % 2.8 % (0.0-3.0); HEMATOCRIT 38.2 % (42.0-52.0); HEMOGLOBIN 12.2 g/dl (13.5-17.5); LYMPH # 2.4 10^3/uL (1.5-4.5); MEAN CORPUSCULAR HEMOGLOBIN 27.8 pg (27.0-33.0); MEAN CORPUSCULAR HGB CONC 31.9 g/dl (32.0-36.5); MONO # 1.1 10^3/uL (0.0-0.8); MONO % 9.7 % (0.0-5.0); NEUTROPHILS % 61.1 % (36.0-66.0); PLATELET COUNT, AUTOMATED 203 10^3/uL (150-450); RED BLOOD COUNT 4.39 10^6/uL (4.30-6.10); WHITE BLOOD COUNT 11.5 10^3/uL (4.0-10.0)
[2018-09-02 06:40] LABS: BLOOD UREA NITROGEN 14 MG/DL (7-18); CALCIUM LEVEL 7.7 MG/DL (8.8-10.2); CARBON DIOXIDE LEVEL 27 MEQ/L (21-32); CHLORIDE LEVEL 110 MEQ/L (98-107); CREATININE FOR GFR 0.67 MG/DL (0.70-1.30); GLOMERULAR FILTRATION RATE > 60.0 (>35); GLUCOSE, FASTING 80 MG/DL (70-100); POTASSIUM SERUM 3.8 MEQ/L (3.5-5.1); SODIUM LEVEL 142 MEQ/L (136-145)
[2018-09-02] MEDS: MIRALAX *UNIT DOSE* 17GM PACKET PO SCH (10:16)
[2018-09-02] MEDS: ASPIRIN 81 MG ENTERIC TAB PO SCH (10:17)
[2018-09-02 10:23] VITALS: BP 118/68
[2018-09-02] MEDS: OMEPRAZOLE 20 MG CAP PO SCH (10:23)
[2018-09-02] MEDS: METOPROLOL SUCC *XL* 25MG TAB (TopROL *XL*) PO SCH (10:23)
[2018-09-02] MEDS: FLECAINIDE 50MG TABLET PO SCH (10:24)
[2018-09-02] MEDS: ENOXAPARIN 40 MG/0.4 ML SYRINGE (J1650) SC SCH (10:25)
[2018-09-02] MEDS ORDERED: FLEC25TA PO (11:23)
[2018-09-02] MEDS ORDERED: METO1TAB32 PO (11:23)
[2018-09-02] MEDS ORDERED: ASPI81TAEC PO (11:23)
[2018-09-02] MEDS ORDERED: AUGM875T28 PO (12:42)
--- NOTE | 2018-09-03 13:34 | ECGEPIP ---
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
--- NOTE | 2018-09-03 15:36 | REP ---
Chest two views HISTORY: Status post cardiac pacemaker Comparison: 08/30/2018 An increase in interstitial markings is present in the lungs consistent with chronic interstitial change. The heart is normal in size. The pulmonary vasculature is normal in appearance. The bony structure is intact. A cardiac pacemaker is present. IMPRESSION: Chronic interstitial change. Electronically Signed by Luis Bonilla MD 08/31/2018 03:19 P
--- NOTE | 2018-09-03 21:26 | DS.PDOC ---
Discharge Summary General Date of Admission Aug 27, 2018 at 21:25 Date of Discharge 09/02/18 Attending Physician: SCOTTY HAYWARD MD Discharge Summary PROCEDURES PERFORMED DURING STAY: Dual chamber PPM placement on 08/30/18 DISCHARGE DIAGNOSES: Aspiration pneumonia Vs HCAP A fib with tachy rhonda syndrome s/p PPM Dysphagia with silent aspiration, cricopharyngeus dysfunction Hypothyroid Hyperlipidemia GERD COMPLICATIONS/CHIEF COMPLAINT: Pneumonia. HISTORY OF PRESENT ILLNESS: See history and physical HOSPITAL COURSE: Patient is an 88 year old male with a past medical history significant hypothyroidism and hyperlipidemia who presented to the [facility] ER from [facility] with complaint of "not feeling well" Patient stated that a few days ago he had started feeling ill. He stated that at the time he had an upset stomach and some diarrhea. He was noted to be coughing continuously. In the ER the patient was found to be febrile with an elevated white count and lactic acid. Additionally, he was found to be in Atrial fibrillation with RVR. He denies any past history of Atrial fibrillation and review of patients chart did not show a diagnosis in the past. In addition, patient received a chest x-ray which demonstrated a right lobe infiltrate. He was admitted for Pneumonia , Afib with rvr. HCAP Vs Aspiration Pneumonia Respiratory status improved following treatment WBC trending downward treated with 5 days of Zosyn Cont Respiratory therapy and duonebs prn Discharged with 5 more days of Augmentin. Tachybrady Syndrome , first degree A-V block and left bundle branch block 2D ECHO notable for Preserved EF, Grade II DD Patient has been noted to be in intermittent PSVT, bradycardia, and then back to NSR. 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 Cardiology on board-->s/p Dual Chamber Pacemaker Placement Dysphagia Speech/Swallow noted mild oral phase dysphagia and severe pharyngeal phase dysphagia as characterized by: silent aspiration of nectar and honey thick liquids. Minimal penetration noted with puree solid. Moist solids cleared with multiple swallows. Observed multiple swallows, throat clear, wet vocal quality and regurgitation to clear solids. Noted cricopharyngeus dysfunction. Diet: Level 2 solids and pudding thick liquids. Possible endoscopy as outpatient. Lactic Acidosis 2/2 Above, resolved s/p IVF Hydration Hypothyroidism Cont levothyroxine Hyperlipidemia Statin GERD Cont PPI DISCHARGE MEDICATIONS: Please see below. ALLERGIES: Please see below. PHYSICAL EXAMINATION ON DISCHARGE: VITAL SIGNS: Please see below. General Exam: Positive: Alert, Cooperative, No Acute Distress ENT Exam: Positive: Atraumatic, Mucous membrane. moist/pink Chest Exam: Positive: Diminished Heart Exam: Positive: Rate Normal, Normal S1, Normal S2 Telemetry: Positive: Sinus, PVCs, Other Telemetry: (intermittent paced) Abdomen Exam: Positive: Soft; Negative: Tenderness Extremity Exam: Negative: Tenderness, Swelling Skin Exam: Positive: Nl turgor and temperature Neuro Exam: Positive: Normal Speech Psych Exam: Positive: Oriented x 3 LABORATORY DATA: Please see below. ACTIVITY: [As tolerated]. DIET: Dysphagia diet, Level 2 solid and pudding thick liquids. DISPOSITION: [facility]. DISCHARGE INSTRUCTIONS: Follow up with Dr Galeano in 1 week for staple removal and pacemaker check DISCHARGE CONDITION: Stable TIME SPENT ON DISCHARGE: Greater than 30 minutes. Vital Signs/I&Os Vital Signs Date Time Temp Pulse Resp B/P (MAP) Pulse Ox O2 Delivery O2 Flow Rate FiO2 09/02/18 10:23 78 118/68 09/02/18 06:00 97.6 16 92 08/28/18 00:16 Room Air I&O- Last 24 Hours up to 6 AM 09/03/18 06:00 Intake Total 290 ml Output Total 200 ml Balance 90 ml Laboratory Data CBC/BMP Item Value Date Time White Blood Count 11.5 10^3/uL H 09/02/18 05 Red Blood Count 4.39 10^6/uL 09/02/18 0523 Hemoglobin 12.2 g/dl L 09/02/18 05 Hematocrit 38.2 % L 09/02/18 0523 Mean Corpuscular Volume 87.0 fl 09/02/18 0523 Mean Corpuscular Hemoglobin 27.8 pg 09/02/18 0523 Mean Corpuscular Hemoglobin Concent 31.9 g/dl L 09/02/18 05 Red Cell Distribution Width 14.8 % H 09/02/18 05 Platelet Count 203 10^3/uL 09/02/18 0523 Sodium Level 142 MEQ/L 09/02/18 05 Potassium Level 3.8 MEQ/L 09/02/18 05 Chloride Level 110 MEQ/L H 09/02/18 05 Carbon Dioxide Level 27 MEQ/L 09/02/18 0523 Anion Gap 5 MEQ/L L 09/02/18 0523 Blood Urea Nitrogen 14 MG/DL 09/02/18 0523 Creatinine 0.67 MG/DL L 09/02/18 0523 Glomerular Filtration Rate > 60.0 09/02/18 0523 Fasting Glucose 80 MG/DL 09/02/18 0523 Calcium Level 7.7 MG/DL L 09/02/18 0523 Microbiology Microbiology 08/27/18 Blood Culture - Final, Complete NO GROWTH AFTER 5 DAYS 08/27/18 Blood Culture - Final, Complete NO GROWTH AFTER 5 DAYS 08/28/18 Respiratory Virus Panel (PCR) ([facility]) - Final, Complete 08/28/18 MRSA Screen - Final, Complete Discharge Medications Scheduled (Calcium 500+D 500-200 mg-Unit) 1 Tab Tab, 1 TAB PO BID, (Reported) (Alyx-Bid Probiotic) 1 Tab Tab, 1 TAB PO BID, (Reported) Amoxicillin/Clavulanate Potas (Augmentin 875-125 mg) 1 Tab Tab, 1 TAB PO BID for 5 days Aspirin (Aspirin EC) 81 Mg Tabec, 81 MG PO DAILY Atorvastatin Calcium (Atorvastatin Calcium) 10 Mg Tab, 10 MG PO QHS, (Reported) Flecainide Acetate (Flecainide Acetate) 25 Mg Halftab, 50 MG PO BID Levothyroxine Sodium (Synthroid) 125 Mcg Tab, 125 MCG PO DAILY, (Reported) GIVE AT 1100 Metoprolol Succinate (Metoprolol Succinate ER) 25 Mg Tab, 25 MG PO QAM Mirtazapine (Remeron) 15 Mg Tab, 15 MG PO QHS, (Reported) Omeprazole (Omeprazole) 20 Mg Tab, 20 MG PO DAILY, (Reported) GIVE AT 0800 Polyethylene Glycol (Miralax) 1 Pow Pow, 17 GRAM PO DAILY, (Reported) dissolve in water Senna (Cvs Senna) 8.6 Mg Tab, 2 TABS PO QHS, (Reported) Scheduled PRN Acetaminophen (Tylenol) 325 Mg Tab, 650 MG PO Q6H PRN for PAIN, (Reported) Psyllium (Reguloid) 28.3 % Pow, 1 POW PO DAILY PRN for IRRITABLE SYND, (Reported) Allergies Coded Allergies: No Known Drug Allergy (Verified Allergy, Unknown, 04/21/18) SCOTTY HAYWARD MD Sep 03, 2018 21:26
== END 2018-09-02 12:57 | DRG 982 ==
LOC: EDBD 18:22 → M ED 18:22 → M ED INP 21:25 → M ICU 08-28 01:08 → M MSPAV 09-01 15:22
PROVIDERS: ADMIT Hospitalist; ATTEND Internal Medicine Nephrology
PROC: 02H63JZ Insertion of Pacemaker Lead into Right Atrium, Percutaneous Approach (ICD-10-PCS; 2018-08-30)
PROC: 02HK3JZ Insertion of Pacemaker Lead into Right Ventricle, Percutaneous Approach (ICD-10-PCS; 2018-08-30)
PROC: 0JH606Z Insertion of Pacemaker, Dual Chamber into Chest Subcutaneous Tissue and Fascia, Open Approach (ICD-10-PCS; principal; 2018-08-30 10:33)
DX: J69.0 Pneumonitis due to inhalation of food and vomit (principal); E87.2 Acidosis; I49.5 Sick sinus syndrome; I48.91 Unspecified atrial fibrillation; E03.9 Hypothyroidism, unspecified; E78.5 Hyperlipidemia, unspecified; R63.4 Abnormal weight loss; R13.11 Dysphagia, oral phase; R13.13 Dysphagia, pharyngeal phase; I44.0 Atrioventricular block, first degree; J84.10 Pulmonary fibrosis, unspecified; K21.9 Gastro-esophageal reflux disease without esophagitis; I44.7 Left bundle-branch block, unspecified; I11.9 Hypertensive heart disease without heart failure; I27.20 Pulmonary hypertension, unspecified; Z87.891 Personal history of nicotine dependence; Z79.899 Other long term (current) drug therapy

== ENCOUNTER → 2018-09-06 | Outpatient (REF) ==
[~2018-09-06] MED LIST changes: +ASPI81TAEC PO; +AUGM875T28 PO; +FLEC25TA PO; +LEVO125T4 PO; +METO1TAB32 PO; +OMEP20TA PO; +REME15TA PO
[2018-09-06 10:03] LABS: HEMATOCRIT 40.2 % (42.0-52.0); HEMOGLOBIN 12.6 g/dl (13.5-17.5); MEAN CORPUSCULAR HEMOGLOBIN 27.6 pg (27.0-33.0); MEAN CORPUSCULAR HGB CONC 31.3 g/dl (32.0-36.5); MEAN CORPUSCULAR VOLUME 88.2 fl (80.0-96.0); PLATELET COUNT, AUTOMATED 322 10^3/uL (150-450); RED BLOOD COUNT 4.56 10^6/uL (4.30-6.10); WHITE BLOOD COUNT 14.9 10^3/uL (4.0-10.0)
[2018-09-06 10:25] LABS: BLOOD UREA NITROGEN 20 MG/DL (7-18); CALCIUM LEVEL 8.2 MG/DL (8.8-10.2); CARBON DIOXIDE LEVEL 27 MEQ/L (21-32); CHLORIDE LEVEL 110 MEQ/L (98-107); GLOMERULAR FILTRATION RATE > 60.0 (>35); GLUCOSE, FASTING 67 MG/DL (70-100); POTASSIUM SERUM 4.2 MEQ/L (3.5-5.1); SODIUM LEVEL 145 MEQ/L (136-145)
== END ==
PROVIDERS: ATTEND Family Medicine
DX: R00.0 Tachycardia, unspecified (principal); R00.1 Bradycardia, unspecified

== ENCOUNTER → 2018-09-08 | Outpatient (REF) ==
[2018-09-08 10:35] LABS: HEMATOCRIT 38.2 % (42.0-52.0); MEAN CORPUSCULAR HEMOGLOBIN 27.8 pg (27.0-33.0); MEAN CORPUSCULAR HGB CONC 31.4 g/dl (32.0-36.5); MEAN CORPUSCULAR VOLUME 88.4 fl (80.0-96.0); PLATELET COUNT, AUTOMATED 317 10^3/uL (150-450); RED BLOOD COUNT 4.32 10^6/uL (4.30-6.10); WHITE BLOOD COUNT 12.7 10^3/uL (4.0-10.0)
[2018-09-08 10:48] LABS: BLOOD UREA NITROGEN 21 MG/DL (7-18); CALCIUM LEVEL 8.5 MG/DL (8.8-10.2); CARBON DIOXIDE LEVEL 25 MEQ/L (21-32); CHLORIDE LEVEL 111 MEQ/L (98-107); CREATININE FOR GFR 0.74 MG/DL (0.70-1.30); GLOMERULAR FILTRATION RATE > 60.0 (>35); GLUCOSE, FASTING 60 MG/DL (70-100); POTASSIUM SERUM 4.2 MEQ/L (3.5-5.1); SODIUM LEVEL 146 MEQ/L (136-145)
== END ==
PROVIDERS: ATTEND Family Medicine
DX: D72.829 Elevated white blood cell count, unspecified (principal)

== ENCOUNTER → 2018-09-21 | Outpatient (REF) ==
[2018-09-21 09:04] LABS: HEMATOCRIT 37.5 % (42.0-52.0); MEAN CORPUSCULAR HEMOGLOBIN 28.2 pg (27.0-33.0); MEAN CORPUSCULAR VOLUME 88.2 fl (80.0-96.0); PLATELET COUNT, AUTOMATED 284 10^3/uL (150-450); RED BLOOD COUNT 4.25 10^6/uL (4.30-6.10); WHITE BLOOD COUNT 9.2 10^3/uL (4.0-10.0)
[2018-09-21 09:29] LABS: BLOOD UREA NITROGEN 23 MG/DL (7-18); CALCIUM LEVEL 8.1 MG/DL (8.8-10.2); CARBON DIOXIDE LEVEL 27 MEQ/L (21-32); CHLORIDE LEVEL 105 MEQ/L (98-107); CREATININE FOR GFR 0.78 MG/DL (0.70-1.30); GLOMERULAR FILTRATION RATE > 60.0 (>35); GLUCOSE, FASTING 68 MG/DL (70-100); POTASSIUM SERUM 4.7 MEQ/L (3.5-5.1); SODIUM LEVEL 138 MEQ/L (136-145)
== END ==
PROVIDERS: ATTEND Family Medicine
DX: R00.0 Tachycardia, unspecified (principal); R00.1 Bradycardia, unspecified

== ENCOUNTER → 2018-09-23 | Outpatient (CLI) | payer MEDICARE, OTHER ==
[~2018-09-23] MED LIST changes: -ASPI1TAB PO; +ASPI81TA26 PO; -CVS8.6TA5 PO; +SENN-85 PO; -VANC250C2 PO; +VANC250C3 PO
--- NOTE | 2018-09-23 14:53 | REP ---
Modified barium swallow: History: Dysphagia, history of aspiration. Followup from August 31, 2018 study which showed prominent laryngeal reflux, aspiration, and hypopharyngeal retention. Fluoroscopy time is 2.8 minutes. Findings: Improvement was noted. Laryngeal penetration was observed with thin and nectar consistency barium but no aspiration was observed. There was some residual in the hypopharynx after initial swallowing with honey consistency barium but only minimal hypopharyngeal residual was observed with other consistencies. Effective throat clearing was observed both spontaneously and upon request. Electronically Signed by Saud Smith MD 09/23/2018 04:25 P
== END ==
LOC: M ST 13:10
PROVIDERS: ATTEND Family Medicine
DX: R13.10 Dysphagia, unspecified (principal)

== ENCOUNTER 2018-10-14 09:28 | Outpatient (CLI) | payer MEDICARE, OTHER ==
[2018-10-14] VITALS (7 sets, daily range): BP systolic 102–121; BP diastolic 55–77
[~2018-10-14] VITALS: Ht 193 cm; Wt 65.0 kg
[2018-10-14] MEDS ORDERED: IRON SUCROSE 500 MG in NS 250 ML IV ONE (10:00)
== END 2018-10-14 15:30 | disposition home or self-care (01) ==
LOC: M INFU 09:28
PROVIDERS: ATTEND Family Medicine
DX: D50.9 Iron deficiency anemia, unspecified (principal); Z79.899 Other long term (current) drug therapy
CPT/HCPCS: 96365; 96366; J1756

== ENCOUNTER → 2018-10-28 | Outpatient (CLI) | payer MEDICARE, OTHER ==
[~2018-10-28] MED LIST changes: +LIQUID POLIBAR PLUS 105% w/v 1900ML BTL As Ordered ONE
--- NOTE | 2018-10-28 10:27 | REP ---
KUB: Single view. History: Chronic diarrhea. The patient is referred for barium enema. The patient took the barium enema prep but described little effect from the prep. Comparison KUB study April 21, 2018. Findings: There is a fecal impaction obstipation pattern on the radiograph with formed stool dilating the rectum and filling the pelvis, 12 cm in right to left dimension. There is also a large amount of formed stool in the sigmoid colon, descending colon and a small amount of right colon. No small bowel dilation is seen. Vascular calcification is noted. There is a 13 mm calcification in the right upper quadrant which may be a renal stone. A similar bowel gas pattern was noted previously including a CT study of the abdomen from July 19, 2015. Impression: 1. Fecal impaction - constipation pattern precludes barium enema performance. I was not comfortable prescribing a repeat bowel prep in this elderly patient. A telephone call was placed to the referring provider and the patient was told that his office would be contacting the patient with further instructions. 2. 13 mm calcification right upper quadrant may be urinary tract or conceivably biliary tract. Electronically Signed by Saud Smith MD 10/28/2018 02:46 P
== END ==
LOC: M RAD 09:32
PROVIDERS: ATTEND Family Medicine
DX: R19.01 Right upper quadrant abdominal swelling, mass and lump (principal); K56.41 Fecal impaction

== ENCOUNTER 2018-11-02 10:47 | Outpatient (CLI) | payer MEDICARE, OTHER ==
[~2018-11-02] VITALS: Ht 193 cm; Wt 65.0 kg
[~2018-11-02 10:47] MED LIST changes: -LIQUID POLIBAR PLUS 105% w/v 1900ML BTL As Ordered ONE
[2018-11-02 10:50] VITALS: BP 100/57
[2018-11-02] MEDS ORDERED: IRON SUCROSE 475 MG in NS 250 ML IV ONE (11:00)
[2018-11-02] MEDS ORDERED: IRON SUCROSE 25 MG in NS 50 ML IV ONE (11:00)
[2018-11-02] MEDS ORDERED: IRON SUCROSE 500 MG in NS 250 ML IV ONE (11:00)
[2018-11-02 11:40] VITALS: BP 89/51
[2018-11-02 12:40] VITALS: BP 92/50
[2018-11-02 13:52] VITALS: BP 88/55
[2018-11-02 14:49] VITALS: BP 104/59
[2018-11-02 16:00] VITALS: BP 99/55
== END 2018-11-02 16:20 | disposition home or self-care (01) ==
LOC: M INFU 10:47
PROVIDERS: ATTEND Family Medicine
DX: D50.9 Iron deficiency anemia, unspecified (principal); Z79.899 Other long term (current) drug therapy
CPT/HCPCS: 96365; 96366; J1756

== ENCOUNTER → 2019-06-02 | Outpatient (REF) | payer MEDICARE, OTHER ==
[~2019-06-02] MED LIST changes: +OMEP-358 PO; -OMEP20TA PO
[2019-06-02 13:51] LABS: HEMATOCRIT 44.8 % (42.0-52.0); HEMOGLOBIN 13.8 g/dl (13.5-17.5); MEAN CORPUSCULAR HEMOGLOBIN 29.4 pg (27.0-33.0); MEAN CORPUSCULAR HGB CONC 30.8 g/dl (32.0-36.5); MEAN CORPUSCULAR VOLUME 95.5 fl (80.0-96.0); PLATELET COUNT, AUTOMATED 244 10^3/uL (150-450); RED BLOOD COUNT 4.69 10^6/uL (4.30-6.10); WHITE BLOOD COUNT 9.9 10^3/uL (4.0-10.0)
[2019-06-02 14:18] LABS: ALBUMIN 3.3 GM/DL (3.2-5.2); ALT/SGPT 14 U/L (12-78); BILIRUBIN,TOTAL 0.4 MG/DL (0.2-1.0); BLOOD UREA NITROGEN 29 MG/DL (7-18); CALCIUM LEVEL 8.8 MG/DL (8.8-10.2); CARBON DIOXIDE LEVEL 31 MEQ/L (21-32); CHLORIDE LEVEL 107 MEQ/L (98-107); CHOLESTEROL LEVEL 165 MG/DL (<200); CREATININE FOR GFR 1.02 MG/DL (0.70-1.30); FREE T4 1.06 NG/DL (0.76-1.46); GLOMERULAR FILTRATION RATE > 60.0 (>35); GLUCOSE, FASTING 82 MG/DL (70-100); HDL CHOLESTEROL 55 MG/DL (>40); LDL CHOLESTEROL 90 MG/DL (<100); NON-HDL-C 110 MG/DL; POTASSIUM SERUM 4.7 MEQ/L (3.5-5.1); SODIUM LEVEL 142 MEQ/L (136-145); TOTAL PROTEIN 6.4 GM/DL (6.4-8.2); TRIGLYCERIDES LEVEL 101 MG/DL (<150)
== END ==
LOC: M SFHCPLAZ 11:05
PROVIDERS: ATTEND Physician Assistant
DX: E03.9 Hypothyroidism, unspecified (principal); K59.09 Other constipation; E78.2 Mixed hyperlipidemia; E61.1 Iron deficiency
CPT/HCPCS: 36415; 80053; 80061; 84439; 84443; 85027; G0463